=== PATIENT | female | born 1955 | race Caucasian/White ===

== ENCOUNTER → 2017-04-20 | Outpatient (CLI) | payer BC, OTHER ==
[~2017-04-20] MED LIST: LEVO112T2 PO; MULT-602; PRLSR20 PO; domperidone PO
--- NOTE | 2017-04-21 07:36 | MAMMOGRAPHY REPORT ---
BILATERAL DIGITAL SCREENING MAMMOGRAM TOMOSYNTHESIS WITH CAD: 04/20/2017 CLINICAL HISTORY: Routine screening. Patient has no complaints. TECHNIQUE: Breast tomosynthesis in addition to standard 2D mammography was performed. Current study was also evaluated with a Computer Aided Detection (CAD) system. COMPARISON: Comparison is made to exams dated: 04/14/2016 mammogram, 04/03/2015 mammogram, 4 mammogram, 02/28/2013 mammogram, 02/23/2012 mammogram, and 03/02/2011 ultrasound - [facility]. BREAST COMPOSITION: There are scattered areas of fibroglandular density in both breasts. FINDINGS: The parenchymal pattern is unchanged. No developing mass, architectural distortion or clus ter of suspicious microcalcifications is seen in either breast. IMPRESSION: ACR BI-RADS CATEGORY 2: BENIGN There is no mammographic evidence of malignancy. A 1 year screening mammogram is recommended. The pa tient will receive written notification of the results. Approximately 10% of breast cancers are not detected with mammography. A negative mammographic report should not delay biopsy if a clinically suggestive mass is present. Iona Amado M.D. ay/:04/21/2017 07:15:29 [employer]ors Custodian: Reuben Farmer, M, [facility] letter sent: Normal 1/2 BI-RADS Code: ACR BI-RADS Category 2: Benign
== END | disposition home or self-care (01) ==
LOC: C.MAMM 14:50
PROVIDERS: ATTEND Internal Medicine Hematology
DX: Z12.31 Encounter for screening mammogram for malignant neoplasm of breast (principal)

== ENCOUNTER 2021-10-10 12:38 | Inpatient (IN) ==
[2021-10-10] MEDS ORDERED: SODIUM CHLORIDE 0.9% 1000ML 1,000 ML IV ONE (12:56)
[2021-10-10] MEDS ORDERED: MoRPHine SULFATE 10 MG/ML CARP/VIAL IV STA (12:56)
[2021-10-10] MEDS ORDERED: ONDANSETRON INJ 2 MG/ML 2 ML VIAL IV STA ×2 (12:56→15:23)
--- NOTE | 2021-10-10 13:05 | Emergency Department Note ---
Impression & Plan Small bowel obstruction due to adhesions, Abdominal pain, Vomiting ED Provider Note NAME: PATRICK ADAIR AGE: 66 SEX: F : 1955 ARRIVES VIA: Walk-In INFORMANT: Patient ED PROVIDER(S): Arjun Galvin DO CHIEF COMPLAINT: abdominal pain HPI: Patient is a 66-year-old female who presents to the ER for right lower quadrant/periumbilical abdominal pain. Symptoms started this morning around 9 for 30. Associate with nausea, vomiting, and diarrhea. Denies any dysuria, urgency, or frequency. No headache or change in vision. No chest pain or shortness of breath. No other exacerbating or remitting factors. They did go out to eat last night. No one around her has been sick that they are aware of. She describes as a crampy pain 10 out of 10 throughout her whole belly but significantly worse in the lower infraumbilical/right lower quadrant region. S he admits to feeling very nauseated and lightheaded. ROS: See above HPI for pertinent positives & negatives. A total of 10 systems reviewed and were otherwise negative. PAST MEDICAL HISTORY:See Below PAST SURGICAL HISTORY:See Below FAMILY HISTORY:See Below SOCIAL HISTORY:See Below HOME MEDICATIONS:See Below ALLERGIES:See Below VITALS:See Below PHYSICAL EXAMINATION: GENERAL: Sitting up in bed, alert, pale appearing, consistently vomiting EYE EXAM: normal conjunctiva. PERRL and EOM's grossly intact. OROPHARYNX: Yellow vomit coming out of mouth NECK: supple, no nuchal rigidity, no adenopathy, non-tender LUNGS: Clear to auscultation. Normal chest wall mechanics HEART: no murmurs, S1 normal and S2 normal ABDOMEN: abdomen soft, tender palpation in infraumbilical/right lower quadrant normo-active bowel sounds, no masses, no rebound or guarding. BACK: Back is symmetrical on inspection and there is no deformity, no midline tenderness, no CVA tenderness. SKIN: no rashes and no bruising UPPER EXTREMITIES: upper extremities are grossly normal. LOWER EXTREMITIES: No pitting edema. NEURO EXAM: Normal sensorium, cranial nerves II-XII grossly intact, normal speech, no gross weakness of arms, no gross weakness of legs. MEDICAL DECISION MAKING: Patient is a 66-year-old female who presents ER for severe abdominal pain associate with nausea and vomiting. Previous abdominal surgeries include hysterectomy. IV was established blood work was obtained. Labs showed no significant leukocytosis or anemia. BMP with slightly low CO2 at 20. LFTs bilirubin was unremarkable. Troponin was negative. Lipase was negative. COVID was negative. CT abdomen pelvis shows small bowel obstruction concern for possible closed-loop. Based on these findings general surgery was consulted and discussed with Margie who evaluate the patient at bedside in combination with Dr. Palacios. I recommended admission to internal medicine and they will follow. NG tube was placed. KUB confirmed. Patient was given multiple doses of morphine and a dose of Dilaudid as well as IV fluids and 2 doses of Zofran. She did have mild improvement of her symptoms. Discussed with Sanjana from [facility] service for further evaluation and admission. Triage Nursing notes reviewed. Limited review of prior medical records performed Vital Signs: reviewed and remarkable for HTN, tachy Differential diagnosis: Differential diagnoses includes but is not limited to gastritis, peptic ulcer disease, GERD, gallbladder disease, pancreatitis, small bowel obstruction, acute coronary syndrome, pericarditis, ischemic bowel, irritable bowel disease, irritable bowel syndrome, appendicitis, diverticulitis, malignancy, hernia, urinary tract infection, torsion, perforation, trauma, infectious. ER treatment provided: See below Diagnostics interpreted by me: ECG: none Cardiac Monitoring: An order was placed for continuous cardiac monitoring. The monitor shows a rate of 55 with sinus rhythm. Laboratory studies: As stated above and show below. Imaging studies: CT abdomen pelvis as described above Consultation(s): Discussed with general surgery who evaluated the patient at bedside Discussed with hospitalist for admission and further evaluation Procedures: none Critical Care: None Past Med/Surg History Medical History Endometriosis Hip pain, right History of cystocele Hypothyroidism Melanoma Myofascial pain Sacroiliitis Surgical History H/O: hysterectomy History of colonoscopy with polypectomy Family History Father Colorectal cancer Mother Colorectal cancer Social History Smoking Status: Former smoker Tobacco Type: Cigarettes Hx Alcohol Use: Yes (2 drinks/week) Hx Substance Use: No Preferred Language: Micronesian Visual Impairment: No Limitations Hearing Ability: Normal Beliefs That Will Affect Care: None marital status: Current Living Situation: Spouse current occupational status: retired Feels Safe at Home: Yes Allergies Allergies Allergy/AdvReac Type Severity Reaction Status Date / Time No Known Allergies Allergy Verified 10/10/21 14:58 Home Meds Home Medications Medication Instructions Recorded Confirmed levothyroxine 125 mcg tablet 125 mcg PO DAILYBB 04/04/18 10/10/21 (Synthroid) Lactobacillus 40-Bifidobact 0 cap PO HS 10/10/21 10/10/21 3-S.thermophilus 100 billion cell capsule (Probiotic) ascorbic acid (vitamin C) 1,000 mg 0 mg PO HS 10/10/21 10/10/21 tablet (Vitamin C) calcium carbonate 500 mg calcium 0 mg PO HS 10/10/21 10/10/21 (1,250 mg) tablet cholecalciferol (vitamin D3) 25 0 mcg PO HS 10/10/21 10/10/21 mcg (1,000 unit) tablet (Vitamin D3) cyanocobalamin (vitamin B-12) 0 mcg PO HS 10/10/21 10/10/21 1,000 mcg tablet (Vitamin B-12) multivitamin 1 tab PO HS 10/10/21 10/10/21 zinc 50 mg tablet 0 mg PO HS 10/10/21 10/10/21 Results & Data (ED) Vital Signs Vital Signs - 24 hr 10/10/21 12:39 10/10/21 12:58 10/10/21 16:00 Temperature 36.9 C Temperature Source Temporal Artery Scan Pulse Rate 110 H Pulse Rate [Right Finger] 52 L 52 L Pulse Rhythm Regular Pulse Rhythm [Right Finger] Regular Pulse Strength Normal Pulse Strength [Right Finger] Normal Normal Respiratory Rate 26 H 18 18 Respiratory Effort / Characteristics Non-Labored Spontaneous Spontaneous Non-Labored Respiratory Depth Normal Normal Normal Respiratory Pattern Regular Tachypnea Regular Blood Pressure 190/172 H Blood Pressure [Right Arm] 106/56 L 112/55 L Blood Pressure Mean 178 Blood Pressure Mean [Right Arm] 72 74 Blood Pressure Position [Right Arm] Lying Lying Pulse Oximetry 100 99 99 Oxygen Delivery Method Room Air Room Air Room Air Sepsis Recent Fever Within 48 Hours No Sepsis New/Unexplained Change in Mental Status N/A Sepsis Action Taken by Nursing No Action Required Laboratory Data Result diagrams: 10/10/21 13:05 10/10/21 13:05 Lab Results 10/10/21 10/10/21 10/10/21 Range/Units 13:05 13:05 13:05 WBC 10.76 (4.8-10.8) K/uL RBC 4.59 (4.2-5.4) M/uL Hgb 14.5 (12.0-16.0) g/dL Hct 42.6 (37-47) % MCV 92.8 (80-100) fL MCH 31.6 (25-34) pg MCHC 34.0 (32-36) g/dL RDW Std Deviation 48.4 H (36.4-46.3) fL RDW Coeff of Ben 14.2 (11.5-14.5) % Plt Count 317 (130-400) K/uL MPV 10.4 (7.4-10.4) fL Immature Gran % (Auto) 0.3 % Neut % (Auto) 80.2 % Lymph % (Auto) 14.6 % Milam % (Auto) 3.9 % Eos % (Auto) 0.7 % Baso % (Auto) 0.3 % Neut # (Auto) 8.64 H (1.4-6.5) K/uL Lymph # (Auto) 1.57 (1.2-3.4) K/uL Milam # (Auto) 0.42 (0.11-0.59) K/uL Eos # (Auto) 0.07 (0-0.5) K/uL Baso # (Auto) 0.03 (0-0.2) K/uL Immature Gran # (Auto) 0.03 H (0.00-0.02) K/uL Sodium 137 (136-145) mmol/L Potassium 3.8 (3.5-5.1) mmol/L Chloride 102 (98-107) mmol/L Carbon Dioxide 20 L (21-32) mmol/L Anion Gap 15 H (3-11) BUN 20 (6-23) mg/dl Creatinine 0.79 (0.6-1.2) mg/dl Est Cr Clr Drug Dosing 51.1 ml/min Est GFR ( Amer) 91.0 ml/min Est GFR (Non-Af Amer) 78.6 ml/min BUN/Creatinine Ratio 25.3 H (10-20) Glucose 121 H (70-99(Fasting)) mg/dl Calcium 10.1 (8.5-10.1) mg/dl Total Bilirubin 1.1 H (0.2-1.0) mg/dl AST 21 (13-39) U/L ALT 20 (7-52) U/L Alkaline Phosphatase 101 (34-104) U/L Troponin I High Sens 2.7 (0-14) pg/ml Total Protein 7.3 (6.0-8.3) gm/dl Albumin 4.5 (3.4-5.0) gm/dl Globulin 2.8 (2.5-4.0) gm/dl Albumin/Globulin Ratio 1.6 (0.9-2) Lipase 32 (11-82) U/L SARS-CoV-2, RNA, NAAT (NEGATIVE) 10/10/21 Range/Units 16:47 WBC (4.8-10.8) K/uL RBC (4.2-5.4) M/uL Hgb (12.0-16.0) g/dL Hct (37-47) % MCV (80-100) fL MCH (25-34) pg MCHC (32-36) g/dL RDW Std Deviation (36.4-46.3) fL RDW Coeff of Ben (11.5-14.5) % Plt Count (130-400) K/uL MPV (7.4-10.4) fL Immature Gran % (Auto) % Neut % (Auto) % Lymph % (Auto) % Milam % (Auto) % Eos % (Auto) % Baso % (Auto) % Neut # (Auto) (1.4-6.5) K/uL Lymph # (Auto) (1.2-3.4) K/uL Milam # (Auto) (0.11-0.59) K/uL Eos # (Auto) (0-0.5) K/uL Baso # (Auto) (0-0.2) K/uL Immature Gran # (Auto) (0.00-0.02) K/uL Sodium (136-145) mmol/L Potassium (3.5-5.1) mmol/L Chloride (98-107) mmol/L Carbon Dioxide (21-32) mmol/L Anion Gap (3-11) BUN (6-23) mg/dl Creatinine (0.6-1.2) mg/dl Est Cr Clr Drug Dosing ml/min Est GFR ( Amer) ml/min Est GFR (Non-Af Amer) ml/min BUN/Creatinine Ratio (10-20) Glucose (70-99(Fasting)) mg/dl Calcium (8.5-10.1) mg/dl Total Bilirubin (0.2-1.0) mg/dl AST (13-39) U/L ALT (7-52) U/L Alkaline Phosphatase (34-104) U/L Troponin I High Sens (0-14) pg/ml Total Protein (6.0-8.3) gm/dl Albumin (3.4-5.0) gm/dl Globulin (2.5-4.0) gm/dl Albumin/Globulin Ratio (0.9-2) Lipase (11-82) U/L SARS-CoV-2, RNA, NAAT NEGATIVE (NEGATIVE) Administered Medications Sodium Chloride (Nss 1000ml) 1,000 mls @ 80 mls/hr IV .[id number] JOHAN Stop: 11/09/21 16:59 Last Admin: 10/10/21 16:50 Dose: 80 mls/hr Documented by: [id number] Discontinued Medications Hydromorphone HCl (Hydromorphone Inj 0.5 Mg/0.5 Ml Syr) 0.5 mg IV NOW STA Stop: 10/10/21 16:16 Last Admin: 10/10/21 16:49 Dose: 0.5 mg Documented by: [id number] Sodium Chloride (Nss 1000ml) 1,000 mls @ 999 mls/hr IV .[id number] ONE Stop: 10/10/21 13:56 Last Infusion: 10/10/21 14:20 Dose: 0 mls/hr Documented by: [id number] Admin: 10/10/21 13:15 Dose: 999 mls/hr Documented by: [id number] Acetaminophen (Ofirmev) 1,000 mg in 100 mls @ 400 mls/hr IV NOW STA Stop: 10/10/21 17:24 Last Admin: 10/10/21 17:44 Dose: 400 mls/hr Documented by: [id number] Ioversol (Optiray 320 100ml) 92 ml IV ONCE ONE Stop: 10/10/21 14:58 Last Admin: 10/10/21 14:59 Dose: 92 ml Documented by: [id number] Morphine Sulfate (Morphine Sulfate 10 Mg/Ml Carp/Vial) 6 mg IV NOW STA Stop: 10/10/21 12:57 Last Admin: 10/10/21 13:12 Dose: 6 mg Documented by: [id number] Morphine Sulfate (Morphine Sulfate 4 Mg/Ml 1 Ml Carp\Vial) 4 mg IV NOW STA Stop: 10/10/21 15:29 Last Admin: 10/10/21 15:42 Dose: 4 mg Documented by: [id number] Ondansetron HCl (Ondansetron Inj 2 Mg/Ml 2 Ml Vial) 4 mg IV NOW STA Stop: 10/10/21 12:57 Last Admin: 10/10/21 13:12 Dose: 4 mg Documented by: [id number] Ondansetron HCl (Ondansetron Inj 2 Mg/Ml 2 Ml Vial) 4 mg IV NOW STA Stop: 10/10/21 15:24 Last Admin: 10/10/21 15:42 Dose: 4 mg Documented by: [id number] Imaging Data Radiologist's Impression: Abdomen/Pelvis CT 10/10/21 12:56 CT abd pelvis IV con only CLINICAL HISTORY: n/v/d rlq abd pain TECHNIQUE: Helical axial images of the abdomen and pelvis were obtained and displayed. Automated dose lowering techniques and/or adjustment according to patient size were utilized for this exam. This exam was performed with intravenous contrast. CT DOSE: 260.71 mGy.cm COMPARISON: Comparison is made to CT abdomen pelvis 07/10/2013 FINDINGS: Lower chest: A focus of groundglass and consolidative opacity is seen in the left lower lobe. This may represent infectious/inflammatory process. Liver: Unremarkable. No focal lesions are seen. Gallbladder and biliary tree: No calcified gallstones. Normal caliber wall. No intra- or extrahepatic biliary ductal dilation. Pancreas: Unremarkable, no focal lesions. Spleen: Unremarkable. Adrenals: Unremarkable. Kidneys and ureters: Unremarkable. Bladder: Unremarkable. Reproductive organs: Unremarkable. Bowel: The appendix is normal. There are multiple dilated loops of bowel just prior to the terminal ileum measuring up to 27 mm. Bowel wall thickening and surrounding fat stranding and free fluid is noted. Transition points are visualized in the right lower quadrant. Lymph nodes Retroperitoneal: Unremarkable. Mesenteric: Unremarkable. Pelvic: Unremarkable. Peritoneum: Normal. Vessels: Unremarkable. Abdominal wall: Unremarkable. Bones: Degenerative changes in the visualized spine. IMPRESSION: Findings are compatible with small bowel obstruction in the right lower quadrant. There is some wall thickening. Although some stool remains in the cecum, 2 transition points are seen and a closed loop obstruction cannot be entirely excluded. ACT 112: Negative or not required by law. Electronically signed by: Alexx Fowler M.D. 10/10/2021 3:39 PM KUB X-Ray 10/10/21 16:15 KUB CLINICAL HISTORY: ng tube placement COMPARISON STUDY: CT of the abdomen and pelvis performed earlier today. FINDINGS: The tip of the nasogastric tube is within the distal body of the stom ach. IMPRESSION: Tip of nasogastric tube within the distal body of the stomach. ACT 112: Negative or not required by law. Electronically signed by: Antwan Boss M.D. 10/10/2021 5:13 PM Discharge Plan Visit Data Chief Complaint: Abdominal Pain Stated Complaint: abd pain, nausea, vomit ED Provider: Arjun Galvin Discharge Problem: Small bowel obstruction due to adhesions, Abdominal pain, Vomiting Forms Stand Alone Forms: [facility] [place] [employer] Prescriptions Prescriptions: No Action levothyroxine [Synthroid] 125 mcg tablet 125 mcg PO DAILYBB RF: 0 multivitamin Tablet 1 tab PO HS RF: 0 ascorbic acid (vitamin C) [Vitamin C] 1,000 mg Tablet 0 mg PO HS RF: 0 cyanocobalamin (vitamin B-12) [Vitamin B-12] 1,000 mcg Tablet 0 mcg PO HS RF: 0 calcium carbonate [Calcium 500] 500 mg calcium (1,250 mg) Tablet 0 mg PO HS RF: 0 zinc 50 mg Tablet 0 mg PO HS RF: 0 cholecalciferol (vitamin D3) [Vitamin D3] 25 mcg (1,000 unit) Tablet 0 mcg PO HS RF: 0 Probiotic 100 billion cell Capsule 0 cap PO HS RF: 0 Referrals Referrals: Roverto El MD [Surgeon] -
[2021-10-10 13:18] LABS: Basophils # (auto) 0.03 K/uL (0-0.2); Basophils % (auto) 0.3 %; Eosinophils # (auto) 0.07 K/uL (0-0.5); Eosinophils % (auto) 0.7 %; Hematocrit (blood only) 42.6 % (37-47); Hemoglobin 14.5 g/dL (12.0-16.0); Immature Granulocytes # (auto) 0.03 K/uL (0.00-0.02); Immature Granulocytes % (auto) 0.3 %; Lymphocytes # (auto) 1.57 K/uL (1.2-3.4); Lymphocytes % (auto) 14.6 %; Mean Corpuscular Hemoglobin 31.6 pg (25-34); Mean Corpuscular Volume 92.8 fL (80-100); Mean Platelet Volume 10.4 fL (7.4-10.4); Monocytes # (auto) 0.42 K/uL (0.11-0.59); Monocytes % (auto) 3.9 %; Neutrophils # (auto) 8.64 K/uL (1.4-6.5); Neutrophils % (auto) 80.2 %; Platelet Count 317 K/uL (130-400); RDW Coefficient of Variation 14.2 % (11.5-14.5); RDW Standard Deviation 48.4 fL (36.4-46.3); Red Blood Count 4.59 M/uL (4.2-5.4); White Blood Count 10.76 K/uL (4.8-10.8)
[2021-10-10 14:01] LABS: Albumin Globulin Ratio 1.6 (0.9-2); Albumin Level 4.5 gm/dl (3.4-5.0); BUN Creatinine Ratio 25.3 (10-20); Bilirubin,Total 1.1 mg/dl (0.2-1.0); Calcium 10.1 mg/dl (8.5-10.1); Creatinine Clr Calc Pharmacy 51.1 ml/min; Est GFR (Non-African American) 78.6 ml/min; Globulin 2.8 gm/dl (2.5-4.0); Potassium 3.8 mmol/L (3.5-5.1); Total Protein 7.3 gm/dl (6.0-8.3)
[2021-10-10] MEDS ORDERED: OPTIRAY 320 100ml IV ONE (14:57)
[2021-10-10] MEDS ORDERED: MoRPHine SULFATE 4 MG/ML 1 ML CARP\\VIAL IV STA (15:28)
--- NOTE | 2021-10-10 15:41 | CT Scan Report ---
CT abd pelvis IV con only CLINICAL HISTORY: n/v/d rlq abd pain TECHNIQUE: Helical axial images of the abdomen and pelvis were obtained and displayed. Automated dose lowering techniques and/or adjustment according to patient size were utilized for this exam. This e xam was performed with intravenous contrast. CT DOSE: 260.71 mGy.cm COMPARISON: Comparison is made to CT abdomen pelvis 07/10/2013 FINDINGS: Lower chest: A focus of groundglass and consolidative opacity is seen in the left lower lobe. This m ay represent infectious/inflammatory process. Liver: Unremarkable. No focal lesions are seen. Gallbladder and biliary tree: No calcified gallstones. Normal caliber wall. No intra- or extrahepatic biliary ductal dilation. Pancreas: Unremarkable, no focal lesions. Spleen: Unremarkable. Adrenals: Unremarkable. Kidneys and ureters: Unremarkable. Bladder: Unremarkable. Reproductive organs: Unremarkable. Bowel: The appendix is normal. There are multiple dilated loops of bowel just prior to the terminal i leum measuring up to 27 mm. Bowel wall thickening and surrounding fat stranding and free fluid is not ed. Transition points are visualized in the right lower quadrant. Lymph nodes Retroperitoneal: Unremarkable. Mesenteric: Unremarkable. Pelvic: Unremarkable. Peritoneum: Normal. Vessels: Unremarkable. Abdominal wall: Unremarkable. Bones: Degenerative changes in the visualized spine. IMPRESSION: Findings are compatible with small bowel obstruction in the right lower quadrant. There is some wall thickening. Although some stool remains in the cecum, 2 transition points are seen and a closed loop obstruction cannot be entirely excluded. ACT 112: Negative or not required by law. Electronically signed by: Alexx Fowler M.D. 10/10/2021 3:39 PM
--- NOTE | 2021-10-10 16:00 | Electrocardiogram Report ---
Test Reason : Blood Pressure : / mmHG Vent. Rate : 050 BPM Atrial Rate : 050 BPM P-R Int : 198 ms QRS Dur : 112 ms QT Int : 540 ms P-R-T Axes : -28 -27 -10 degrees QTc Int : 492 ms Sinus bradycardia Prolonged QT Abnormal ECG When compared with ECG of 27-APR-2013 21:32, ST no longer elevated in Inferior leads Non-specific change in ST segment in Lateral leads T wave inversion now evident in Inferior leads QT has lengthened Confirmed by Baldo Leo ([id number]) on 10/10/2021 3:59:41 PM Referred By: Confirmed By:Baldo Leo
[2021-10-10] MEDS ORDERED: HYDROmorphone INJ 0.5 MG/0.5 ML SYR IV STA (16:15)
--- NOTE | 2021-10-10 16:17 | History & Physical Report ---
Date of Service October 10, 2021 Assessment & Plan (1) Small bowel obstruction due to adhesions: (2) Hypothyroidism: Plan: This is a 66-year-old female who has significant past medical history of hypothyroidism, gastroparesis and arthritis who presents to ED secondary to right lower quadrant and periumbilical abdominal pain x1 day. Abdominal pain with N/V/D SBO admit to med/surg consult general surgery - Dr. Janny Palacios saw patient conservative measures for now NPO NGT with LIS IVF NS 80cc/hr IV apap scheduled, prn IV morphine Prolonged QTC on EKG EKG change cycle trops for thoroughness obtain echo she had nuclear stress test 07/2021 that was negative - at that time she was having increased fatigue and sob Hypothyroidism obtain tsh in a.m. transition to IV for now DVT ppx: SQ lovenox for now PCP: Dr. Barbi El FULL CODE Dispo: Med/surg, likely to remain hospitalized 1-2 days Pt was seen and examined in collaboration with Dr. Jennings, please see addendum History of Present Illness Chief Complaint: abdominal pain x 1 day. Primary Care Provider: Barbi El MD This is a 66-year-old female who has significant past medical history of hypothyroidism, gastroparesis and arthritis who presents to ED secondary to right lower quadrant and periumbilical abdominal pain x1 day. Symptoms started around 930 this morning with associated nausea, vomiting and diarrhea. She woke up this morning in her normal state of health. She did not eat breakfast. She got her work out in. Approx 20-30 min after workout she developed crampy lower abdominal pain that felt like, "gas." She then proceeded to vomiting 3-4 x of green emesis, non bloody. She also had about 2-3 episodes of loose watery stool. No known sick contacts. Last meal was dinner last night. She has never had this before. Pain is constant. Pain is located in abdomen. Initially was RLQ now more upper abd. Described as sharp. Her last Bm was at 12pm today in ED and diarrhea. She denies f/s, chest pain, sob, cough, uri sx, lightheaded, dizziness, dysuria, increased urg/freq with urination, hematuria, melena or hematochezia. She has hx of vaginal hysterectomy. No other prior abdominal surgeries. She is very active with exercise and walking. She follows GI for gastroparesis but does not take anything for this. She denies tobacco use and drinks wine occasionally. She had one glass of wine last night. Only drinks on weekends. In ED pt was hemodynamically stable. CT a/p revealed Findings are compatible with small bowel obstruction in the right lower quadrant. There is some wall thickening. Although some stool remains in the cecum, 2 transition points are seen and a closed loop obstruction cannot be entirely excluded. She received IV pain medications and antiemetics in ED. SHe continues to have significant abdominal pain. Allergies Allergy/AdvReac Type Severity Reaction Status Date / Time No Known Allergies Allergy Verified 10/10/21 14:58 Home Medications Medication Instructions Recorded Confirmed Type levothyroxine 125 mcg tablet 125 mcg PO DAILYBB 04/04/18 10/10/21 History (Synthroid) Lactobacillus 40-Bifidobact 0 cap PO HS 10/10/21 10/10/21 History 3-S.thermophilus 100 billion cell capsule (Probiotic) ascorbic acid (vitamin C) 1,000 mg 0 mg PO HS 10/10/21 10/10/21 History tablet (Vitamin C) calcium carbonate 500 mg calcium 0 mg PO HS 10/10/21 10/10/21 History (1,250 mg) tablet cholecalciferol (vitamin D3) 25 0 mcg PO HS 10/10/21 10/10/21 History mcg (1,000 unit) tablet (Vitamin D3) cyanocobalamin (vitamin B-12) 0 mcg PO HS 10/10/21 10/10/21 History 1,000 mcg tablet (Vitamin B-12) multivitamin 1 tab PO HS 10/10/21 10/10/21 History zinc 50 mg tablet 0 mg PO HS 10/10/21 10/10/21 History Past Med/Surg History Medical History Endometriosis Hip pain, right History of cystocele Hypothyroidism Melanoma Myofascial pain Sacroiliitis Surgical History H/O: hysterectomy History of colonoscopy with polypectomy Family History Father Colorectal cancer Mother Colorectal cancer Social History Smoking Status: Former smoker Tobacco Type: Cigarettes Hx Alcohol Use: Yes (2 drinks/week) Hx Substance Use: No Preferred Language: Colombian Visual Impairment: No Limitations Hearing Ability: Normal Beliefs That Will Affect Care: None marital status: Current Living Situation: Spouse current occupational status: retired Feels Safe at Home: Yes Review of Systems Review of Systems: All systems reviewed & are unremarkable except as noted in HPI & below Physical Exam Physical Exam: Constitutional: WD/WN, vitals as above, NAD, sitting up in bed, pleasant, conversing easily Head: Normocephalic, Atraumatic Eyes: PERRL, conjunctivae normal, anicteric sclerae ENMT: external ear and nose normal, oropharynx normal Neck: trachea midline, no thyromegaly normal visual inspection Respiratory: normal respiratory effort, lungs clear to auscultation, no wheeze, rales, rhonchi. Normal insp/exp effort, no accessory muscle use Cardiovascular: RRR, no murmur, no edema Vessels: no JVD or carotid bruit Chest: normal inspection of chest Abdomen: +BS, soft but tender throughout Musculoskeletal: no cyanosis or clubbing, extremities motor strength 5/5 Skin: no rashes, warm and dry normal turgor Neurologic: PERRL, EOMI, accommodation nl, no face palsy, no dysarthria CN's II-XI intact bilaterally and moves all extremities Psychiatric: A+Ox3, euthymic affect : deferred Results & Data Results & Data ([facility]) Vital Signs (Past 12 Hours) Vital Signs Temp Pulse Pulse Resp BP BP Pulse Ox 10/10/21 16:00 52 L 18 112/55 L 99 10/10/21 12:58 52 L 18 106/56 L 99 10/10/21 12:39 36.9 C 110 H 26 H 190/172 H 100 Diagnostic Findings Abdomen/Pelvis CT 10/10/21 12:56 CT abd pelvis IV con only CLINICAL HISTORY: n/v/d rlq abd pain TECHNIQUE: Helical axial images of the abdomen and pelvis were obtained and displayed. Automated dose lowering techniques and/or adjustment according to patient size were utilized for this exam. This exam was performed with intravenous contrast. CT DOSE: 260.71 mGy.cm COMPARISON: Comparison is made to CT abdomen pelvis 07/10/2013 FINDINGS: Lower chest: A focus of groundglass and consolidative opacity is seen in the left lower lobe. This may represent infectious/inflammatory process. Liver: Unremarkable. No focal lesions are seen. Gallbladder and biliary tree: No calcified gallstones. Normal caliber wall. No intra- or extrahepatic biliary ductal dilation. Pancreas: Unremarkable, no focal lesions. Spleen: Unremarkable. Adrenals: Unremarkable. Kidneys and ureters: Unremarkable. Bladder: Unremarkable. Reproductive organs: Unremarkable. Bowel: The appendix is normal. There are multiple dilated loops of bowel just prior to the terminal ileum measuring up to 27 mm. Bowel wall thickening and surrounding fat stranding and free fluid is noted. Transition points are visualized in the right lower quadrant. Lymph nodes Retroperitoneal: Unremarkable. Mesenteric: Unremarkable. Pelvic: Unremarkable. Peritoneum: Normal. Vessels: Unremarkable. Abdominal wall: Unremarkable. Bones: Degenerative changes in the visualized spine. IMPRESSION: Findings are compatible with small bowel obstruction in the right lower quadrant. There is some wall thickening. Although some stool remains in the cecum, 2 transition points are seen and a closed loop obstruction cannot be entirely excluded. ACT 112: Negative or not required by law. Electronically signed by: Alexx Fowler M.D. 10/10/2021 3:39 PM Medications Administered Medication List Discontinued Medications Sodium Chloride (Nss 1000ml) 1,000 mls @ 999 mls/hr IV .Q1H1M ONE Stop: 10/10/21 13:56 Last Infusion: 10/10/21 14:20 Dose: 0 mls/hr Documented by: [id number] Admin: 10/10/21 13:15 Dose: 999 mls/hr Documented by: [id number] Ioversol (Optiray 320 100ml) 92 ml IV ONCE ONE Stop: 10/10/21 14:58 Last Admin: 10/10/21 14:59 Dose: 92 ml Documented by: [id number] Morphine Sulfate (Morphine Sulfate 10 Mg/Ml Carp/Vial) 6 mg IV NOW STA Stop: 10/10/21 12:57 Last Admin: 10/10/21 13:12 Dose: 6 mg Documented by: [id number] Morphine Sulfate (Morphine Sulfate 4 Mg/Ml 1 Ml Carp\\Vial) 4 mg IV NOW STA Stop: 10/10/21 15:29 Last Admin: 10/10/21 15:42 Dose: 4 mg Documented by: [id number] Ondansetron HCl (Ondansetron Inj 2 Mg/Ml 2 Ml Vial) 4 mg IV NOW STA Stop: 10/10/21 12:57 Last Admin: 10/10/21 13:12 Dose: 4 mg Documented by: [id number] Ondansetron HCl (Ondansetron Inj 2 Mg/Ml 2 Ml Vial) 4 mg IV NOW STA Stop: 10/10/21 15:24 Last Admin: 10/10/21 15:42 Dose: 4 mg Documented by: [id number] ECG Rate (beats per minute): 50 Rhythm: sinus bradycardia Findings: + prolonged QT (492ms) Additional Comments: inferior t wave inversion COVID-19 Results Results COVID-19 Adm Lab Results: RBC 4.59 M/uL (4.2-5.4) 10/10/21 WBC 10.76 K/uL (4.8-10.8) 10/10/21 Hgb 14.5 g/dL (12.0-16.0) 10/10/21 Hct 42.6 % (37-47) 10/10/21 Plt Count 317 K/uL (130-400) 10/10/21 Neutrophils (%) (Auto) 80.2 % 10/10/21 Lymphocytes (%) (Auto) 14.6 % 10/10/21 Monocytes # (Auto) 0.42 K/uL (0.11-0.59) 10/10/21 Eosinophils # (Auto) 0.07 K/uL (0-0.5) 10/10/21 Immature Granulocyte % (Auto) 0.3 % 10/10/21 Neutrophils # (Auto) 8.64 K/uL (1.4-6.5) H 10/10/21 Lymphocytes # (Auto) 1.57 K/uL (1.2-3.4) 10/10/21 Monocytes # (Auto) 0.42 K/uL (0.11-0.59) 10/10/21 Eosinophils # (Auto) 0.07 K/uL (0-0.5) 10/10/21 Basophils # (Auto) 0.03 K/uL (0-0.2) 10/10/21 Immature Granulocyte # (Auto) 0.03 K/uL (0.00-0.02) H 10/10/21 Na 137 mmol/L (136-145) 10/10/21 K 3.8 mmol/L (3.5-5.1) 10/10/21 Cl 102 mmol/L (98-107) 10/10/21 CO2 20 mmol/L (21-32) L 10/10/21 Anion Gap 15 (3-11) H 10/10/21 BUN 20 mg/dl (6-23) 10/10/21 Creatinine 0.79 mg/dl (0.6-1.2) 10/10/21 BUN/Creatinine Ratio 25.3 (10-20) H 10/10/21 Glucose Level 121 mg/dl (70-99(Fasting)) H 10/10/21 Ca 10.1 mg/dl (8.5-10.1) 10/10/21 Total Bilirubin 1.1 mg/dl (0.2-1.0) H 10/10/21 AST/SGOT 21 U/L (13-39) 10/10/21 ALT/SGPT 20 U/L (7-52) 10/10/21 Alkaline Phosphatase 101 U/L (34-104) 10/10/21 Total Protein 7.3 gm/dl (6.0-8.3) 10/10/21 Albumin 4.5 gm/dl (3.4-5.0) 10/10/21 Globulin 2.8 gm/dl (2.5-4.0) 10/10/21 Albumin/Globulin Ratio 1.6 (0.9-2) 10/10/21 Code Status & VTE Plan Code Status FULL CODE VTE Prophylaxis Plan VTE Prophylaxis will be ordered: Yes Supervising Physician Co-Signing Physician Notes Patient is a 66-year-old female with history of hypothyroidism, gastroparesis, vaginal hysterectomy and no other significant past medical history presents with history of nausea, vomiting, diarrhea, abdominal pain since 1 day duration. She denies any chest pain, shortness of breath, fever, chills, blood in stools. Abdominal pain is sharp, nonradiating, constant, no aggravating relieving factors. Patient denies having any history of small bowel obstruction in the past. Please review HPI for complete details of presentation. On exam patient is thin, frail, no apparent distress, normocephalic atraumatic, EOMI, normal breath sounds, clear to auscultation, S1-S2, bradycardia, no murmur, no pedal edema, abdomen soft, tender predominantly right lower quadrant, periumbilical region, decreased bowel sounds, alert, awake, oriented, grossly no focal deficits. Blood work reviewed. Bicarbonate level 20, anion gap 15, Hemoglobin 14.5, creatinine 0.79, bilirubin 1.1, AST 21, ALT 20, alkaline phosphatase 101, CT abdomen showed findings suggestive of small bowel obstruction in the right lower quadrant, wall thickening, 2 transition points seen and a closed-loop obstruction cannot be entirely excluded. EKG showed sinus bradycardia, prolonged QT, nonspecific change in ST segment and lateral leads, T wave inversion in inferior leads noted. Patient is admitted for management of small bowel obstruction. Bowel rest, NG tube decompression, IV fluids, pain control, surgery consulted. Repeat KUB in AM. Given new EKG changes, will trend cardiac enzymes, check resting echo and repeat EKG in the morning. QTC is prolonged. Avoid QTC prolonging meds. I personally reviewed the record. Patient is inter viewed and examined at bedside. Patient's care is coordinated with Sanjana Otto PA-C. Please refer to the documentation above for details of patient's presentation and for discussion of other issues.
--- NOTE | 2021-10-10 16:45 | History & Physical Report ---
Date of Service October 10, 2021 Assessment & Plan (1) Small bowel obstruction due to adhesions: Plan: 66 yr old woman with prior hysterectomy and findings consistent with small bowel obstruction, potentially closed loop but this is not clear on her CT scan. Currently, no signs of ischemia or peritoneal signs on exam. I would be comfortable with trial of conservative management with ng decompression, bowel rest, IVF hydration. If fails to improve, may potentially need exploration. Will follow. History of Present Illness Chief Complaint: abdominal pain Primary Care Provider: Roverto El MD 66 yr old woman seen in consultation at the request of Arjun Galvin MD with history of a vaginal hysterectomy presents today with generalized, constant, severe abdominal pain which started suddenly around 9:30 am. Pain was initially more in the right lower quadrant, now more focal in the upper abdomen, 10/10 in severity, not better with 2 dose of morphine, no worsening with movement. No radiation to her back. No similar episodes in the past. Associated with nausea and vomiting, initially bilious but now dry heaves. Last bowel movement was diarrhea while here in the ER. [place] chilled and weak but no fevers. Allergies Allergy/AdvReac Type Severity Reaction Status Date / Time No Known Allergies Allergy Verified 10/10/21 14:58 Home Medications Medication Instructions Recorded Confirmed Type levothyroxine 125 mcg tablet 125 mcg PO DAILYBB 04/04/18 10/10/21 History (Synthroid) Lactobacillus 40-Bifidobact 0 cap PO HS 10/10/21 10/10/21 History 3-S.thermophilus 100 billion cell capsule (Probiotic) ascorbic acid (vitamin C) 1,000 mg 0 mg PO HS 10/10/21 10/10/21 History tablet (Vitamin C) calcium carbonate 500 mg calcium 0 mg PO HS 10/10/21 10/10/21 History (1,250 mg) tablet cholecalciferol (vitamin D3) 25 0 mcg PO HS 10/10/21 10/10/21 History mcg (1,000 unit) tablet (Vitamin D3) cyanocobalamin (vitamin B-12) 0 mcg PO HS 10/10/21 10/10/21 History 1,000 mcg tablet (Vitamin B-12) multivitamin 1 tab PO HS 10/10/21 10/10/21 History zinc 50 mg tablet 0 mg PO HS 10/10/21 10/10/21 History Past Med/Surg History Medical History Endometriosis Hip pain, right History of cystocele Hypothyroidism Melanoma Myofascial pain Sacroiliitis Surgical History H/O: hysterectomy History of colonoscopy with polypectomy Family History Father Colorectal cancer Mother Colorectal cancer Social History Smoking Status: Former smoker Tobacco Type: Cigarettes Hx Alcohol Use: Yes (2 drinks/week) Hx Substance Use: No Preferred Language: Macedonian Visual Impairment: No Limitations Hearing Ability: Normal Beliefs That Will Affect Care: None marital status: Current Living Situation: Spouse current occupational status: retired Feels Safe at Home: Yes Review of Systems Review of Systems: All systems reviewed & are unremarkable except as noted in HPI & below Physical Exam Constitutional: WD/WN, vitals as above Eyes: PERRL, conjunctivae normal, anicteric sclerae Neck: normal visual inspection and trachea midline Respiratory: normal respiratory effort, lungs clear to auscultation Cardiovascular: RRR, no murmur, no edema Gastrointestinal (Abdomen): Inspection/Auscultation: abdomen normal to inspection and + hypoactive bowel sounds; abdomen not distended and + abnormal bowel sounds Percussion/Palpation: + abdomen tender (mild, right lower quadrant) and abdomen soft; no guarding and no hepatosplenomegaly Musculoskeletal: no cyanosis or clubbing, extremities motor strength 5/5 Neurologic: moves all extremities and awake Psychiatric: A+Ox3, euthymic affect Results & Data Results & Data ([facility]) Vital Signs (Past 12 Hours) Vital Signs Temp Pulse Pulse Resp BP BP Pulse Ox 10/10/21 16:00 52 L 18 112/55 L 99 10/10/21 12:58 52 L 18 106/56 L 99 10/10/21 12:39 36.9 C 110 H 26 H 190/172 H 100 Laboratory Results Abnormal lab results 10/10/21 10/10/21 Range/Units 13:05 13:05 RDW Std Deviation 48.4 H (36.4-46.3) fL Neut # (Auto) 8.64 H (1.4-6.5) K/uL Immature Gran # (Auto) 0.03 H (0.00-0.02) K/uL Carbon Dioxide 20 L (21-32) mmol/L Anion Gap 15 H (3-11) BUN/Creatinine Ratio 25.3 H (10-20) Glucose 121 H (70-99(Fasting)) mg/dl Total Bilirubin 1.1 H (0.2-1.0) mg/dl Diagnostic Findings CT abd pelvis IV con only CLINICAL HISTORY: n/v/d rlq abd pain TECHNIQUE: Helical axial images of the abdomen and pelvis were obtained and displayed. Automated dose lowering techniques and/or adjustment according to patient size were utilized for this exam. This exam was performed with intravenous contrast. CT DOSE: 260.71 mGy.cm COMPARISON: Comparison is made to CT abdomen pelvis 07/10/2013 FINDINGS: Lower chest: A focus of groundglass and consolidative opacity is seen in the left lower lobe. This may represent infectious/inflammatory process. Liver: Unremarkable. No focal lesions are seen. Gallbladder and biliary tree: No calcified gallstones. Normal caliber wall. No intra- or extrahepatic biliary ductal dilation. Pancreas: Unremarkable, no focal lesions. Spleen: Unremarkable. Adrenals: Unremarkable. Kidneys and ureters: Unremarkable. Bladder: Unremarkable. Reproductive organs: Unremarkable. Bowel: The appendix is normal. There are multiple dilated loops of bowel just prior to the terminal ileum measuring up to 27 mm. Bowel wall thickening and surrounding fat stranding and free fluid is noted. Transition points are visualized in the right lower quadrant. Lymph nodes Retroperitoneal: Unremarkable. Mesenteric: Unremarkable. Pelvic: Unremarkable. Peritoneum: Normal. Vessels: Unremarkable. Abdominal wall: Unremarkable. Bones: Degenerative changes in the visualized spine. IMPRESSION: Findings are compatible with small bowel obstruction in the right lower quadrant. There is some wall thickening. Although some stool remains in the cecum, 2 transition points are seen and a closed loop obstruction cannot be entirely excluded. ACT 112: Negative or not required by law. I personally reviewed her CT scan films and agree wtih findings. Code Status & VTE Plan VTE Prophylaxis Plan VTE Prophylaxis will be ordered: Yes
[2021-10-10] MEDS: SODIUM CHLORIDE 0.9% 1000ML 1,000 ML IV SCH (16:50)
[2021-10-10] MEDS ORDERED: ACETAMINOPHEN 1,000 MG/100 ML VIAL IV STA (17:10)
--- NOTE | 2021-10-10 17:15 | XRay Report ---
KUB CLINICAL HISTORY: ng tube placement COMPARISON STUDY: CT of the abdomen and pelvis performed earlier today. FINDINGS: The tip of the nasogastric tube is within the distal body of the stomach. IMPRESSION: Tip of nasogastric tube within the distal body of the stomach. ACT 112: Negative or not required by law. Electronically signed by: Antwan Boss M.D. 10/10/2021 5:13 PM
[2021-10-10] MEDS ORDERED: MoRPHine SULFATE 4 MG/ML 1 ML CARP\\VIAL IV PRN (19:55)
[2021-10-10] MEDS: ACETAMINOPHEN 1,000 MG/100 ML VIAL IV SCH (20:15)
[2021-10-10] MEDS: PROMETHAZINE HCL 6.25 MG in SODIUM CHLORIDE 0.9% 50 ML IV PRN (20:55)
[2021-10-10] MEDS: HYDROmorphone INJ 0.5 MG/0.5 ML SYR IV PRN (21:35)
[2021-10-10] MEDS: HEPARIN SOD 5,000 UNIT/0.5 ML VIAL SC SCH (22:40)
[2021-10-11] MEDS: HYDROmorphone INJ 0.5 MG/0.5 ML SYR IV PRN ×4 (00:44→13:28)
[2021-10-11] MEDS ORDERED: HYDROmorphone INJ 0.5 MG/0.5 ML SYR IV STA (01:27)
[2021-10-11 01:30] LABS: Appearance Urine Clear (Clear); Bacteria Urine Automated 4+ (Negative); Bilirubin Urine Negative (Negative); Blood Urine 1+ (Negative); Color Urine Yellow; Epithelial Cell Urine Auto >30 /lpf (0-5); Glucose Urine UA Negative (Negative); Ketones Urine 2+ (Negative); Leukocyte Esterase Urine Negative (Negative); Nitrite Urine Positive (Negative); Protein Urine Negative (Negative); RBC Urine Automated 0-4 /hpf (0-4); Specific Gravity Urine > 1.045 (1.000-1.030); Urobilinogen Urine Negative (Negative)
[2021-10-11] MEDS: SODIUM CHLORIDE 0.9% 1000ML 1,000 ML IV SCH ×2 (04:12→17:57)
[2021-10-11] MEDS: ACETAMINOPHEN 1,000 MG/100 ML VIAL IV SCH ×3 (04:13→19:55)
[2021-10-11] MEDS: PROMETHAZINE HCL 6.25 MG in SODIUM CHLORIDE 0.9% 50 ML IV PRN (04:41)
[2021-10-11 07:11] LABS: Basophils # (auto) 0.01 K/uL (0-0.2); Basophils % (auto) 0.1 %; Hematocrit (blood only) 37.5 % (37-47); Hemoglobin 12.6 g/dL (12.0-16.0); Immature Granulocytes # (auto) 0.07 K/uL (0.00-0.02); Immature Granulocytes % (auto) 0.4 %; Lymphocytes # (auto) 1.36 K/uL (1.2-3.4); Lymphocytes % (auto) 6.9 %; Mean Corpuscular Hemoglobin 32.1 pg (25-34); Mean Corpuscular Hgb Conc 33.6 g/dL (32-36); Mean Corpuscular Volume 95.7 fL (80-100); Mean Platelet Volume 10.2 fL (7.4-10.4); Monocytes # (auto) 0.96 K/uL (0.11-0.59); Monocytes % (auto) 4.9 %; Neutrophils # (auto) 17.29 K/uL (1.4-6.5); Neutrophils % (auto) 87.7 %; Platelet Count 272 K/uL (130-400); RDW Coefficient of Variation 14.8 % (11.5-14.5); RDW Standard Deviation 51.9 fL (36.4-46.3); Red Blood Count 3.92 M/uL (4.2-5.4); White Blood Count 19.69 K/uL (4.8-10.8)
[2021-10-11 07:33] LABS: Albumin Globulin Ratio 1.6 (0.9-2); Albumin Level 3.8 gm/dl (3.4-5.0); BUN Creatinine Ratio 24.6 (10-20); Calcium 8.8 mg/dl (8.5-10.1); Creatinine Clr Calc Pharmacy 62.1 ml/min; Est GFR (Non-African American) 93.2 ml/min; Globulin 2.4 gm/dl (2.5-4.0); Magnesium 1.9 mg/dl (1.7-2.4); Total Protein 6.2 gm/dl (6.0-8.3)
--- NOTE | 2021-10-11 08:23 | Hospitalist Progress Note ---
Date of Service October 11, 2021 Assessment & Plan (1) Small bowel obstruction due to adhesions: (2) Hypothyroidism: Plan: This is a 66-year-old female who has significant past medical history of hypothyroidism, gastroparesis and arthritis who presents to ED secondary to right lower quadrant and periumbilical abdominal pain x1 day. Abdominal pain with N/V/D SBO admitted to med/surg General surgery consulted - Dr. Janny Palacios NG tube placed on admission, LIS NPO IVF NS 80cc/hr IV apap scheduled, prn IV dilaudid 10/11 - pt continues to have abdominal pain, despite NG tube placement and pain medications White blood cell count elevated today as well, lactate normal Started empiric antibiotic, ceftriaxone Plan for ex lap today by surgery Prolonged QTC on EKG EKG change High sensit. trops 2-5 Echo ordered on admission - pending she had nuclear stress test 07/2021 that was negative - at that time she was having increased fatigue and sob repeat EKG this AM -QTC shortened, nonspecific T wave abnormality replaced T wave inversion in inferior leads Pt denies any chest pain Hypothyroidism TSH 0.9 cont. IV levothyroxine for now DVT ppx: SCDs, (SQ heparin on hold now for surgery) PCP: Dr. Barbi El FULL CODE Dispo: Med/surg, likely to remain hospitalized 3-5 days Admission and Anticipated Discharge Date Admission Date: October 10, 2021 Subjective Patient seen in follow-up of small bowel obstruction Admitted yesterday, NG tube placed, however patient continues to have significant abdominal pain WBC elevated this morning as well, however lactate normal Surgery following, plan for ex lap today Review of Systems Review of Systems: All systems reviewed & are unremarkable except as noted in Subjective Physical Exam Physical Exam: Constitutional: WD/WN, in no respiratory distress, but somewhat uncomfortable due to pain, despite pain med Head: Normocephalic, Atraumatic Eyes: PERRL, conjunctivae normal, anicteric sclerae ENMT: NG tube placed Neck: normal visual inspection, supple Respiratory: normal respiratory effort, lungs clear to auscultation, no wheeze, rales, rhonchi. Normal insp/exp effort, no accessory muscle use Cardiovascular: RRR, no murmur, no edema Chest: normal inspection of chest Abdomen: +BS, soft but tender throughout Musculoskeletal:extremities motor strength 5/5 Skin: no rashes, warm and dry normal turgor Neurologic: PERRL, EOMI, no face palsy, no dysarthria, moves all extremities Psychiatric: A+Ox3, euthymic affect Results & Data Results & Data ([facility]) Vital Signs (Past 12 Hours) Vital Signs Temp Pulse Resp BP Pulse Ox 10/11/21 07:24 37.4 C 72 16 138/74 96 10/10/21 22:52 36.9 C 67 14 147/72 H 98 Laboratory Results 10/11/21 10/11/21 10/11/21 Range/Units 06:56 06:56 06:56 WBC 19.69 H (4.8-10.8) K/uL RBC 3.92 L (4.2-5.4) M/uL Hgb 12.6 (12.0-16.0) g/dL Hct 37.5 (37-47) % MCV 95.7 (80-100) fL MCH 32.1 (25-34) pg MCHC 33.6 (32-36) g/dL RDW Std Deviation 51.9 H (36.4-46.3) fL RDW Coeff of Ben 14.8 H (11.5-14.5) % Plt Count 272 (130-400) K/uL MPV 10.2 (7.4-10.4) fL Immature Gran % (Auto) 0.4 % Neut % (Auto) 87.7 % Lymph % (Auto) 6.9 % Butts % (Auto) 4.9 % Eos % (Auto) 0.0 % Baso % (Auto) 0.1 % Neut # (Auto) 17.29 H (1.4-6.5) K/uL Lymph # (Auto) 1.36 (1.2-3.4) K/uL Butts # (Auto) 0.96 H (0.11-0.59) K/uL Eos # (Auto) 0.00 (0-0.5) K/uL Baso # (Auto) 0.01 (0-0.2) K/uL Immature Gran # (Auto) 0.07 H (0.00-0.02) K/uL Sodium 137 (136-145) mmol/L Potassium 4.0 (3.5-5.1) mmol/L Chloride 107 (98-107) mmol/L Carbon Dioxide 23 (21-32) mmol/L Anion Gap 7 (3-11) BUN 16 (6-23) mg/dl Creatinine 0.65 (0.6-1.2) mg/dl Est Cr Clr Drug Dosing 62.1 ml/min Est GFR ( Amer) 108.0 ml/min Est GFR (Non-Af Amer) 93.2 ml/min BUN/Creatinine Ratio 24.6 H (10-20) Glucose 130 H (70-99(Fasting)) mg/dl Lactate (0.4-2.0) mmol/L Calcium 8.8 (8.5-10.1) mg/dl Magnesium 1.9 (1.7-2.4) mg/dl Total Bilirubin 1.0 (0.2-1.0) mg/dl AST 16 (13-39) U/L ALT 16 (7-52) U/L Alkaline Phosphatase 78 (34-104) U/L Troponin I High Sens (0-14) pg/ml Total Protein 6.2 (6.0-8.3) gm/dl Albumin 3.8 (3.4-5.0) gm/dl Globulin 2.4 L (2.5-4.0) gm/dl Albumin/Globulin Ratio 1.6 (0.9-2) Lipase (11-82) U/L TSH 0.973 (0.300-4.500) uIu/ml Urine Color Urine Appearance (Clear) Urine pH (4.5-7.5) Ur Specific [place] (1.000-1.030) Urine Protein (Negative) Urine Glucose (UA) (Negative) Urine Ketones (Negative) Urine Blood (Negative) Urine Nitrite (Negative) Urine Bilirubin (Negative) Urine Urobilinogen (Negative) Ur Leukocyte Esterase (Negative) Urine WBC (Auto) (0-5) /hpf Urine RBC (Auto) (0-4) /hpf U Hyaline Cast (Auto) (0-5) /lpf U Epithel Cells (Auto) (0-5) /lpf Urine Bacteria (Auto) (Negative) Hepatitis C Ab (EIA) Hep C Ab Signal/Cutoff SARS-CoV-2, RNA, NAAT (NEGATIVE) 10/11/21 10/11/21 10/11/21 Range/Units 06:56 00:52 00:40 WBC (4.8-10.8) K/uL RBC (4.2-5.4) M/uL Hgb (12.0-16.0) g/dL Hct (37-47) % MCV (80-100) fL MCH (25-34) pg MCHC (32-36) g/dL RDW Std Deviation (36.4-46.3) fL RDW Coeff of Ben (11.5-14.5) % Plt Count (130-400) K/uL MPV (7.4-10.4) fL Immature Gran % (Auto) % Neut % (Auto) % Lymph % (Auto) % Butts % (Auto) % Eos % (Auto) % Baso % (Auto) % Neut # (Auto) (1.4-6.5) K/uL Lymph # (Auto) (1.2-3.4) K/uL Butts # (Auto) (0.11-0.59) K/uL Eos # (Auto) (0-0.5) K/uL Baso # (Auto) (0-0.2) K/uL Immature Gran # (Auto) (0.00-0.02) K/uL Sodium (136-145) mmol/L Potassium (3.5-5.1) mmol/L Chloride (98-107) mmol/L Carbon Dioxide (21-32) mmol/L Anion Gap (3-11) BUN (6-23) mg/dl Creatinine (0.6-1.2) mg/dl Est Cr Clr Drug Dosing ml/min Est GFR ( Amer) ml/min Est GFR (Non-Af Amer) ml/min BUN/Creatinine Ratio (10-20) Glucose (70-99(Fasting)) mg/dl Lactate 0.7 (0.4-2.0) mmol/L Calcium (8.5-10.1) mg/dl Magnesium (1.7-2.4) mg/dl Total Bilirubin (0.2-1.0) mg/dl AST (13-39) U/L ALT (7-52) U/L Alkaline Phosphatase (34-104) U/L Troponin I High Sens 5.2 (0-14) pg/ml Total Protein (6.0-8.3) gm/dl Albumin (3.4-5.0) gm/dl Globulin (2.5-4.0) gm/dl Albumin/Globulin Ratio (0.9-2) Lipase (11-82) U/L TSH (0.300-4.500) uIu/ml Urine Color Yellow Urine Appearance Clear (Clear) Urine pH 5.0 (4.5-7.5) Ur Specific [place] > 1.045 H (1.000-1.030) Urine Protein Negative (Negative) Urine Glucose (UA) Negative (Negative) Urine Ketones 2+ H (Negative) Urine Blood 1+ H (Negative) Urine Nitrite Positive A (Negative) Urine Bilirubin Negative (Negative) Urine Urobilinogen Negative (Negative) Ur Leukocyte Esterase Negative (Negative) Urine WBC (Auto) 5-10 H (0-5) /hpf Urine RBC (Auto) 0-4 (0-4) /hpf U Hyaline Cast (Auto) 5-10 H (0-5) /lpf U Epithel Cells (Auto) >30 H (0-5) /lpf Urine Bacteria (Auto) 4+ H (Negative) Hepatitis C Ab (EIA) Hep C Ab Signal/Cutoff SARS-CoV-2, RNA, NAAT (NEGATIVE) 10/10/21 10/10/21 10/10/21 Range/Units 18:48 16:47 13:05 WBC (4.8-10.8) K/uL RBC (4.2-5.4) M/uL Hgb (12.0-16.0) g/dL Hct (37-47) % MCV (80-100) fL MCH (25-34) pg MCHC (32-36) g/dL RDW Std Deviation (36.4-46.3) fL RDW Coeff of Ben (11.5-14.5) % Plt Count (130-400) K/uL MPV (7.4-10.4) fL Immature Gran % (Auto) % Neut % (Auto) % Lymph % (Auto) % Butts % (Auto) % Eos % (Auto) % Baso % (Auto) % Neut # (Auto) (1.4-6.5) K/uL Lymph # (Auto) (1.2-3.4) K/uL Butts # (Auto) (0.11-0.59) K/uL Eos # (Auto) (0-0.5) K/uL Baso # (Auto) (0-0.2) K/uL Immature Gran # (Auto) (0.00-0.02) K/uL Sodium (136-145) mmol/L Potassium (3.5-5.1) mmol/L Chloride (98-107) mmol/L Carbon Dioxide (21-32) mmol/L Anion Gap (3-11) BUN (6-23) mg/dl Creatinine (0.6-1.2) mg/dl Est Cr Clr Drug Dosing ml/min Est GFR ( Amer) ml/min Est GFR (Non-Af Amer) ml/min BUN/Creatinine Ratio (10-20) Glucose (70-99(Fasting)) mg/dl Lactate (0.4-2.0) mmol/L Calcium (8.5-10.1) mg/dl Magnesium (1.7-2.4) mg/dl Total Bilirubin (0.2-1.0) mg/dl AST (13-39) U/L ALT (7-52) U/L Alkaline Phosphatase (34-104) U/L Troponin I High Sens < 2.3 (0-14) pg/ml Total Protein (6.0-8.3) gm/dl Albumin (3.4-5.0) gm/dl Globulin (2.5-4.0) gm/dl Albumin/Globulin Ratio (0.9-2) Lipase (11-82) U/L TSH (0.300-4.500) uIu/ml Urine Color Urine Appearance (Clear) Urine pH (4.5-7.5) Ur Specific [place] (1.000-1.030) Urine Protein (Negative) Urine Glucose (UA) (Negative) Urine Ketones (Negative) Urine Blood (Negative) Urine Nitrite (Negative) Urine Bilirubin (Negative) Urine Urobilinogen (Negative) Ur Leukocyte Esterase (Negative) Urine WBC (Auto) (0-5) /hpf Urine RBC (Auto) (0-4) /hpf U Hyaline Cast (Auto) (0-5) /lpf U Epithel Cells (Auto) (0-5) /lpf Urine Bacteria (Auto) (Negative) Hepatitis C Ab (EIA) Pending Hep C Ab Signal/Cutoff Pending SARS-CoV-2, RNA, NAAT NEGATIVE (NEGATIVE) 10/10/21 10/10/21 10/10/21 Range/Units 13:05 13:05 13:05 WBC 10.76 (4.8-10.8) K/uL RBC 4.59 (4.2-5.4) M/uL Hgb 14.5 (12.0-16.0) g/dL Hct 42.6 (37-47) % MCV 92.8 (80-100) fL MCH 31.6 (25-34) pg MCHC 34.0 (32-36) g/dL RDW Std Deviation 48.4 H (36.4-46.3) fL RDW Coeff of Ben 14.2 (11.5-14.5) % Plt Count 317 (130-400) K/uL MPV 10.4 (7.4-10.4) fL Immature Gran % (Auto) 0.3 % Neut % (Auto) 80.2 % Lymph % (Auto) 14.6 % Butts % (Auto) 3.9 % Eos % (Auto) 0.7 % Baso % (Auto) 0.3 % Neut # (Auto) 8.64 H (1.4-6.5) K/uL Lymph # (Auto) 1.57 (1.2-3.4) K/uL Butts # (Auto) 0.42 (0.11-0.59) K/uL Eos # (Auto) 0.07 (0-0.5) K/uL Baso # (Auto) 0.03 (0-0.2) K/uL Immature Gran # (Auto) 0.03 H (0.00-0.02) K/uL Sodium 137 (136-145) mmol/L Potassium 3.8 (3.5-5.1) mmol/L Chloride 102 (98-107) mmol/L Carbon Dioxide 20 L (21-32) mmol/L Anion Gap 15 H (3-11) BUN 20 (6-23) mg/dl Creatinine 0.79 (0.6-1.2) mg/dl Est Cr Clr Drug Dosing 51.1 ml/min Est GFR ( Amer) 91.0 ml/min Est GFR (Non-Af Amer) 78.6 ml/min BUN/Creatinine Ratio 25.3 H (10-20) Glucose 121 H (70-99(Fasting)) mg/dl Lactate (0.4-2.0) mmol/L Calcium 10.1 (8.5-10.1) mg/dl Magnesium (1.7-2.4) mg/dl Total Bilirubin 1.1 H (0.2-1.0) mg/dl AST 21 (13-39) U/L ALT 20 (7-52) U/L Alkaline Phosphatase 101 (34-104) U/L Troponin I High Sens 2.7 (0-14) pg/ml Total Protein 7.3 (6.0-8.3) gm/dl Albumin 4.5 (3.4-5.0) gm/dl Globulin 2.8 (2.5-4.0) gm/dl Albumin/Globulin Ratio 1.6 (0.9-2) Lipase 32 (11-82) U/L TSH (0.300-4.500) uIu/ml Urine Color Urine Appearance (Clear) Urine pH (4.5-7.5) Ur Specific [place] (1.000-1.030) Urine Protein (Negative) Urine Glucose (UA) (Negative) Urine Ketones (Negative) Urine Blood (Negative) Urine Nitrite (Negative) Urine Bilirubin (Negative) Urine Urobilinogen (Negative) Ur Leukocyte Esterase (Negative) Urine WBC (Auto) (0-5) /hpf Urine RBC (Auto) (0-4) /hpf U Hyaline Cast (Auto) (0-5) /lpf U Epithel Cells (Auto) (0-5) /lpf Urine Bacteria (Auto) (Negative) Hepatitis C Ab (EIA) Hep C Ab Signal/Cutoff SARS-CoV-2, RNA, NAAT (NEGATIVE) Medications Administered Current Inpatient Medications Heparin Sodium (Porcine) (Heparin Sod 5,000 Unit/0.5 Ml Vial) 5,000 units SC Q12H JOHAN Stop: 11/09/21 20:29 Last Admin: 10/10/21 22:40 Dose: 5,000 units Documented by: Hydromorphone HCl (Hydromorphone Inj 0.5 Mg/0.5 Ml Syr) 0.5 mg IV Q3H PRN PRN Reason: Pain Stop: 10/24/21 21:03 Last Admin: 10/11/21 07:45 Dose: 0.5 mg Documented by: Sodium Chloride (Nss 1000ml) 1,000 mls @ 80 mls/hr IV .[id number] [facility] Stop: 11/09/21 16:59 Last Admin: 10/11/21 04:12 Dose: 80 mls/hr Documented by: Acetaminophen (Ofirmev) 1,000 mg in 100 mls @ 400 mls/hr IV Q8H [facility] Stop: 10/13/21 19:54 Last Infusion: 10/11/21 04:39 Dose: Infused Documented by: Levothyroxine Sodium 62.5 mcg/ (Syringe) 3.125 mls @ 2 mls/min IV DAILY@0900 [facility]; Protocol Stop: 11/10/21 08:59 Promethazine HCl 6.25 mg/ (Sodium Chloride) 50.25 mls @ 201 mls/hr IV Q6H PRN PRN Reason: Nausea And Vomiting Stop: 11/09/21 19:54 Last Infusion: 10/11/21 05:01 Dose: Infused Documented by:
[2021-10-11] MEDS ORDERED: MAGNESIUM SULFATE / D5W 1 GM/100 ML BAG IV ONE (08:24)
[2021-10-11] MEDS ORDERED: cefTRIAXone SODIUM 1,000 MG in DEXTROSE 5% 50 ML IV SCH (08:30)
[2021-10-11] MEDS ORDERED: LEVOTHYROXINE SODIUM 62.5 MCG in SYRINGE 0 ML IV SCH (09:00)
[2021-10-11] MEDS: HEPARIN SOD 5,000 UNIT/0.5 ML VIAL SC SCH ×2 (09:45→19:57)
--- NOTE | 2021-10-11 09:50 | Surgery Progress Note ---
Date of Service October 11, 2021 Assessment & Plan (1) Small bowel obstruction due to adhesions: Plan: 66 yr old woman with prior hysterectomy, endometriosis surgery and cytocele repair and findings consistent with small bowel obstruction, potentially closed loop but this is not clear on her CT scan. Worrisome that she has had no improvement overnight with persistence of intense pain and has a worsening leukocytosis. Currently, no ischemia on clinical exam (no acute abdomen) but remains tender. Lactate normal, also suggestive of no ischemia yet. Discussed with pt and her and daughter (oncologist) - latter two on phone. Given the findings above, I am more worried about a closed loop obstruction which as a lower potential to resolve conservatively and carries a risk of bowel ischemia. I would recommend surgery today with exploratory laparotomy, lysis of adhesions, possible bowel resection. Explained that the sooner we can "release" the bowel, the less likely that a resection will be needed. Risks of bleeding, infection, hernia, recurrent obstruction, injury to bowel or other organs all discussed. Expected recovery of 3-5 days in the hospital and 4-6 week recovery period reviewed. Consent signed. For OR today. Admission and Anticipated Discharge Date Admission Date: October 10, 2021 Subjective No improvement overnight. NG with minimal output (5 cc) despite xray showing tip in stomach. Remains with 8/10 pain, requiring pain medications "as frequently as possible", still with dry heaves although these are slightly better. Pain is more focused in upper abdomen now although remains tender throughout. Walking only small amounts in her room. Review of Systems Review of Systems: All systems reviewed & are unremarkable except as noted in HPI & below Physical Exam Constitutional: WD/WN, vitals as above Eyes: PERRL, conjunctivae normal, anicteric sclerae Neck: normal visual inspection and trachea midline Respiratory: normal respiratory effort, lungs clear to auscultation Cardiovascular: RRR, no murmur, no edema Gastrointestinal (Abdomen): Inspection/Auscultation: abdomen normal to inspection and + hypoactive bowel sounds; abdomen not distended and + abnormal bowel sounds Percussion/Palpation: + abdomen tender (mild, right lower quadrant and left lower quadrant) and abdomen soft; no guarding and no hepatosplenomegaly Musculoskeletal: no cyanosis or clubbing, extremities motor strength 5/5 Neurologic: moves all extremities and awake Psychiatric: A+Ox3, euthymic affect Results & Data ([place]) Vital Signs (Past 12 Hours) Vital Signs Temp Pulse Resp BP Pulse Ox 10/11/21 07:24 37.4 C 72 16 138/74 96 10/10/21 22:52 36.9 C 67 14 147/72 H 98 Laboratory Results Abnormal lab results 10/10/21 10/10/21 10/11/21 Range/Units 13:05 13:05 00:40 WBC (4.8-10.8) K/uL RBC (4.2-5.4) M/uL RDW Std Deviation 48.4 H (36.4-46.3) fL RDW Coeff of Ben (11.5-14.5) % Neut # (Auto) 8.64 H (1.4-6.5) K/uL [place] # (Auto) (0.11-0.59) K/uL Immature Gran # (Auto) 0.03 H (0.00-0.02) K/uL Carbon Dioxide 20 L (21-32) mmol/L Anion Gap 15 H (3-11) BUN/Creatinine Ratio 25.3 H (10-20) Glucose 121 H (70-99(Fasting)) mg/dl Total Bilirubin 1.1 H (0.2-1.0) mg/dl Globulin (2.5-4.0) gm/dl Ur Specific [place] > 1.045 H (1.000-1.030) Urine Ketones 2+ H (Negative) Urine Blood 1+ H (Negative) Urine Nitrite Positive A (Negative) Urine WBC (Auto) 5-10 H (0-5) /hpf U Hyaline Cast (Auto) 5-10 H (0-5) /lpf U Epithel Cells (Auto) >30 H (0-5) /lpf Urine Bacteria (Auto) 4+ H (Negative) 10/11/21 10/11/21 Range/Units 06:56 06:56 WBC 19.69 H (4.8-10.8) K/uL RBC 3.92 L (4.2-5.4) M/uL RDW Std Deviation 51.9 H (36.4-46.3) fL RDW Coeff of Ben 14.8 H (11.5-14.5) % Neut # (Auto) 17.29 H (1.4-6.5) K/uL [place] # (Auto) 0.96 H (0.11-0.59) K/uL Immature Gran # (Auto) 0.07 H (0.00-0.02) K/uL Carbon Dioxide (21-32) mmol/L Anion Gap (3-11) BUN/Creatinine Ratio 24.6 H (10-20) Glucose 130 H (70-99(Fasting)) mg/dl Total Bilirubin (0.2-1.0) mg/dl Globulin 2.4 L (2.5-4.0) gm/dl Ur Specific [place] (1.000-1.030) Urine Ketones (Negative) Urine Blood (Negative) Urine Nitrite (Negative) Urine WBC (Auto) (0-5) /hpf U Hyaline Cast (Auto) (0-5) /lpf U Epithel Cells (Auto) (0-5) /lpf Urine Bacteria (Auto) (Negative) Of note, lactate level normal at 0.7
--- NOTE | 2021-10-11 10:23 | Anesthesiology Consultation ---
Date of Service October 11, 2021 Assessment & Plan (1) Encounter for pre-operative examination: Chart Review Chart Review: Acceptable Risk for Surgery History Surgery Operation Date: 10/11/21 13:00 Proposed Procedures p Exploratory Laparotomy - Janny Palacios MD Height/Weight Height: 5 ft 8 in Weight: 45.6 kg Allergies Allergy/AdvReac Type Severity Reaction Status Date / Time No Known Allergies Allergy Verified 10/10/21 14:58 Medications Home Medications Medication Instructions Recorded Confirmed Last Taken levothyroxine 125 mcg tablet 125 mcg PO DAILYBB 04/04/18 10/10/21 10/10/21 (Synthroid) Lactobacillus 40-Bifidobact 0 cap PO HS 10/10/21 10/10/21 10/09/21 3-S.thermophilus 100 billion cell capsule (Probiotic) ascorbic acid (vitamin C) 1,000 mg 0 mg PO HS 10/10/21 10/10/21 10/09/21 tablet (Vitamin C) calcium carbonate 500 mg calcium 0 mg PO HS 10/10/21 10/10/21 10/09/21 (1,250 mg) tablet cholecalciferol (vitamin D3) 25 0 mcg PO HS 10/10/21 10/10/21 10/09/21 mcg (1,000 unit) tablet (Vitamin D3) cyanocobalamin (vitamin B-12) 0 mcg PO HS 10/10/21 10/10/21 10/09/21 1,000 mcg tablet (Vitamin B-12) multivitamin 1 tab PO HS 10/10/21 10/10/21 10/09/21 zinc 50 mg tablet 0 mg PO HS 10/10/21 10/10/21 10/09/21 Active Medications Generic Name Dose Route Start Last Admin Trade Name Freq PRN Reason Stop Dose Admin Heparin Sodium (Porcine) 5,000 units 10/10/21 20:30 10/11/21 09:45 Heparin Sod 5,000 Unit/0.5 Ml Vial SC 11/09/21 20:29 Not Given Q12H JOHAN Hydromorphone HCl 0.5 mg 10/10/21 21:04 10/11/21 07:45 Hydromorphone Inj 0.5 Mg/0.5 Ml Syr IV 10/24/21 21:03 0.5 mg Q3H PRN Administration Pain Sodium Chloride 1,000 mls @ 80 mls/hr 10/10/21 17:00 10/11/21 04:12 Nss 1000ml IV 11/09/21 16:59 80 mls/hr .[id number] JOHAN Administration Acetaminophen 1,000 mg in 100 mls @ 400 mls/hr 10/10/21 19:55 10/11/21 04:39 Ofirmev IV 10/13/21 19:54 Infused Q8H JOHAN Infusion Promethazine HCl 6.25 mg/ 50.25 mls @ 201 mls/hr 10/10/21 19:55 10/11/21 05:01 Sodium Chloride IV 11/09/21 19:54 Infused Q6H PRN Infusion Nausea And Vomiting Ceftriaxone Sodium 1,000 mg/ 60 mls @ 100 mls/hr 10/11/21 08:30 10/11/21 10:17 Dextrose IV 10/13/21 08:29 100 mls/hr Q24H JOHAN Administration Protocol Past Medical History Medical History Endometriosis Hip pain, right History of cystocele Hypothyroidism Melanoma Myofascial pain Sacroiliitis Past Family History Family History Father Colorectal cancer Mother Colorectal cancer Past Surgical History Surgical History H/O: hysterectomy History of colonoscopy with polypectomy Social History Smoking Status: Former smoker tobacco type: cigarettes Do You Dip or Chew Tobacco: No Smoking End Date: 1979 Hx Alcohol Use: Yes Alcohol type: wine alcohol intake frequency: a few times a month Hx Substance Use: No Physical Exam Vital Signs Last Vital Signs Temp 37.4 C 10/11/21 07:24 Pulse 72 10/11/21 07:24 Resp 16 10/11/21 07:24 BP 138/74 10/11/21 07:24 Pulse Ox 96 10/11/21 07:24 Testing Laboratory Results 10/11/21 06:56 10/11/21 06:56 Urine Color Yellow 10/11/21 00:40 Urine Appearance Clear (Clear) 10/11/21 00:40 Urine pH 5.0 (4.5-7.5) 10/11/21 00:40 Ur Specific [place] > 1.045 (1.000-1.030) H 10/11/21 00:40 Urine Protein Negative (Negative) 10/11/21 00:40 Urine Glucose (UA) Negative (Negative) 10/11/21 00:40 Urine Ketones 2+ (Negative) H 10/11/21 00:40 Urine Nitrite Positive (Negative) A 10/11/21 00:40 Ur Leukocyte Esterase Negative (Negative) 10/11/21 00:40 Urine WBC (Auto) 5-10 /hpf (0-5) H 10/11/21 00:40 Urine RBC (Auto) 0-4 /hpf (0-4) 10/11/21 00:40 U Hyaline Cast (Auto) 5-10 /lpf (0-5) H 10/11/21 00:40 U Epithel Cells (Auto) >30 /lpf (0-5) H 10/11/21 00:40 Urine Bacteria (Auto) 4+ (Negative) H 10/11/21 00:40 Electrocardiogram Date: 10/11/21 Findings: + NSR @ and + NSST changes
--- NOTE | 2021-10-11 11:20 | XRay Report ---
KUB HISTORY: Small bowel obstruction. Follow-up. COMPARISON: KUB 10/10/2021. FINDINGS: Mildly dilated gas-filled loops of small bowel are again seen within the abdomen consistent with a small bowel obstruction. Nasogastric tube terminates in the distal stomach. No renal calculi . No ureteral calculi. No pneumoperitoneum or pneumatosis. IMPRESSION: 1. No change in the small bowel obstructive pattern. 2. Nasogastric tube terminates in the distal stomach. ACT 112: Negative or not required by law. Electronically signed by: Preston Joshi M.D. 10/11/2021 11:19 AM
[2021-10-11] MEDS ORDERED: MIDAZOLAM HCL 1 MG/ML 2ML VIAL ONE (14:05)
[2021-10-11] MEDS ORDERED: fentaNYL citrate 100 MCG/2 ML VIAL ONE ×2 (14:05→15:17)
[2021-10-11] MEDS ORDERED: BUPIVACAINE 0.5 % 5 MG/1 ML MPF 30ML VIAL ONE (14:39)
[2021-10-11] MEDS ORDERED: ATROPINE SULFATE 0.1 MG/ML 10ML SYR IV PRN (14:51)
[2021-10-11] MEDS ORDERED: PROMETHAZINE HCL 12.5 MG in SODIUM CHLORIDE 0.9% 50 ML IV PRN (14:51)
[2021-10-11] MEDS ORDERED: ONDANSETRON INJ 2 MG/ML 2 ML VIAL IV PRN (14:51)
[2021-10-11] MEDS ORDERED: SCOPOLAMINE 1 MG TDSY TD ONE (14:52)
[2021-10-11] MEDS ORDERED: SUGAMMADEX SODIUM 200 MG/2 ML VIAL IV ONE (15:14)
[2021-10-11] MEDS ORDERED: GLYCOPYRROLATE 0.2 MG/ML VIAL ONE (16:42)
[2021-10-11] MEDS ORDERED: DEXAMETHASONE SOD INJ 4 MG/ML VIAL ONE (16:42)
[2021-10-11] MEDS ORDERED: ONDANSETRON INJ 2 MG/ML 2 ML VIAL ONE (16:42)
[2021-10-11] MEDS ORDERED: LIDOCAINE 2% 2 ML VIAL/AMP(20MG/ML) INFIL ONE (16:42)
[2021-10-11] MEDS ORDERED: NEOSTIGMINE METHYLSULFATE 1 MG/ML 10ML VIAL ONE (16:42)
[2021-10-11] MEDS ORDERED: SUCCINYLCHOLINE 100MG/5ML SYR IV ONE (16:42)
[2021-10-11] MEDS ORDERED: ROCURONIUM BROMIDE 10 MG/ML 5 ML VIAL IV ONE (16:42)
[2021-10-11] MEDS ORDERED: PROPOFOL IV EMULSION 10 MG/ML 20 ML VIAL IV ONE (16:42)
--- NOTE | 2021-10-11 16:43 | Operative Report ---
Post Operative Report Pre & Post Diagnosis Operation Date: 10/11/21 13:00 Pre-Op Diagnosis: Small bowel obstruction. Post-Op Diagnosis: Small bowel obstruction with ischemic bowel I identified the patient and participated in the time-out.: Yes Procedure Operation Date: 10/11/21 13:00 Actual Procedures p Exploratory Laparotomy, partial small Bowel Resection. - Janny Palacios MD Surgeon Janny Palacios MD Acid Dipper none Estimated Blood Loss 5 Findings Consistent with Post-Op Diagnosis adhesive band from right lower quadrant tethering to mesentery with 8-10 inch loop of ileum that had torsed and was ischemic (black) Fluids 1600 cc Specimens small bowel Drains none Anesthesia Type General Complications none Disposition Disposition: Recovery Room Indications 66 yr old woman with history of prior pelvis surgery presented with acute abdominal pain and CT showing small bowel obstruction. Initially treated conservatively but symptoms perisisted over first 12 hrs of hospital stay and WBC count increased. Consented for exploratory laparotomy. Description of Procedure She was on mefoxin preoperatively. After the induction of GET, she had placement of SCD's. Her abdomen was sterilely prepped and draped. After time out, a lower midline incision was made and carried through the fascia. The peritoneum was sharply entered. Immediately, a loop of black ischemic small bowel was noted in the pelvis and right lower quadrant. Sponges were placed to protect the skin edges from contamination. The loop was eviscerated and traced back to a tight band constricting its mesenteric supply from the right lower quadrant. The loop of bowel had twisted around this band. The band was ligated with vicryl ties and divided. This allowed the intestine to be freed and untwisted. The bowel was run from ligament of Trietz to cecum and no other areas of abnormality noted. Decision was made to proceed with a partial small bowel resection. Bowel clamps were applied proximally and distally. An area was chosen both proximal and distal to the ischemia. This area was free of changes and noted to have a good blood supply. The bowel was divided with firings of the TAM 45 mm blue load stapler both proximally and distally. The mesentary was divided between clamps with 2-0 and 3-0 vicryl ties. The ischemic loop was sent off the field as specimen. Prior to anastamosis, the abdomen was irrigated with 1 L of saline. The two small bowel ends were brought together with 3-0 silk stay sutures. A side to side (functional end to end) anastamosis was performed using the TAM 45 stapler through two enterotomies to form the connection. The connection was closed with a TA 45 blue load stapler. The mesenteric defect was closed with silk sutures. The ends of the staple line were dunked with silk suture. No tension was noted on the anastamosis. Bowel clamps were released and the anastamosis placed into the abdominal cavity and covered with omentum. The abdomen was irrigated again. NG position was checked. 30 cc of 0.5% marcaine was injected for local anesthesia. After counts were correct, the fascia was closed with a running looped 1 prolene suture. The wound was irrigated and closed with heriberto. A sterile dressing was applied. As her bladder was noted to be distended by the completion of the procedure, she was straight cath'ed. She was extubated and taken to recovery in stable condition. I attest to the content of the Intraoperative Record and any orders documented therein. Any exceptions are noted below.
[2021-10-11] MEDS ORDERED: HYDROmorphone INJ 1 MG/ML SYRINGE ONE (16:44)
[2021-10-11] MEDS: HYDROmorphone INJ 1 MG/ML SYRINGE IV PRN ×4 (16:45→17:15)
--- NOTE | 2021-10-11 17:26 | Anesthesiology Progress Note ---
Date of Service October 11, 2021 Anesthesia Post Procedure Vital Signs Vital Signs: Temp Pulse Pulse Resp BP Pulse Ox 10/11/21 17:25 36.8 C 81 14 115/54 L 98 10/11/21 17:15 78 18 118/60 97 10/11/21 17:05 79 12 106/55 L 94 10/11/21 16:55 71 12 112/60 99 10/11/21 16:45 81 19 111/70 99 10/11/21 16:37 36.2 C L 81 19 105/60 99 10/11/21 07:24 37.4 C 72 16 138/74 96 10/10/21 22:52 36.9 C 67 14 147/72 H 98 10/10/21 19:47 36.8 C 61 18 137/70 100 10/10/21 18:00 55 L 20 125/64 95 Pain Intensity Abdomen: Pain Intensity: 3 Transfer of Care Handoff Completed per policy Notes Mental Status: alert / awake / arousable Patient Amnestic to Procedure: Yes Nausea / Vomiting: adequately controlled Pain: adequately controlled Airway Patency, RR, SpO2: stable & adequate BP & HR: stable & adequate Hydration State: stable & adequate Anesthetic Complications: no major complications apparent
[2021-10-11] MEDS ORDERED: PIPERACILL/TAZOBAC CONSULT ACTIVE PRN (17:54)
[2021-10-11] MEDS ORDERED: PIPERACILLIN/TAZOBACTAM 3.375 GM in DEXTROSE 5% 100 ML IV ONE (19:30)
[2021-10-11] MEDS: PIPERACILLIN/TAZOBACTAM 3.375 GM in DEXTROSE 5% 100 ML IV SCH (23:00)
[2021-10-12] MEDS: ACETAMINOPHEN 1,000 MG/100 ML VIAL IV SCH ×3 (02:57→19:43)
[2021-10-12] MEDS: SODIUM CHLORIDE 0.9% 1000ML 1,000 ML IV SCH ×2 (03:00→15:18)
[2021-10-12 06:21] LABS: Hematocrit (blood only) 34.4 % (37-47); Hemoglobin 11.2 g/dL (12.0-16.0); Mean Corpuscular Hemoglobin 31.5 pg (25-34); Mean Corpuscular Hgb Conc 32.6 g/dL (32-36); Mean Corpuscular Volume 96.6 fL (80-100); Mean Platelet Volume 10.5 fL (7.4-10.4); Platelet Count 224 K/uL (130-400); RDW Coefficient of Variation 15.3 % (11.5-14.5); RDW Standard Deviation 53.6 fL (36.4-46.3); Red Blood Count 3.56 M/uL (4.2-5.4); White Blood Count 10.36 K/uL (4.8-10.8)
[2021-10-12 06:49] LABS: Calcium 8.4 mg/dl (8.5-10.1); Creatinine Clr Calc Pharmacy 66.2 ml/min; Est GFR (African American) 110.3 ml/min; Est GFR (Non-African American) 95.1 ml/min; Phosphorus 1.7 mg/dl (2.5-4.9); Potassium 4.2 mmol/L (3.5-5.1)
[2021-10-12] MEDS: PIPERACILLIN/TAZOBACTAM 3.375 GM in DEXTROSE 5% 100 ML IV SCH ×2 (07:43→15:33)
[2021-10-12] MEDS ORDERED: SODIUM PHOSPHATE 3 MMOL/1 ML INFUSION IV STA (08:09)
--- NOTE | 2021-10-12 08:11 | Hospitalist Progress Note ---
Date of Service October 12, 2021 Assessment & Plan (1) Small bowel obstruction due to adhesions: (2) Hypothyroidism: Plan: This is a 66-year-old female who has significant past medical history of hypothyroidism, gastroparesis and arthritis who presents to ED secondary to right lower quadrant and periumbilical abdominal pain x1 day. Abdominal pain with N/V/D SBO admitted to med/surg General surgery consulted - Dr. Janny Palacios NG tube placed on admission, LIS NPO IVF NS 80cc/hr IV apap scheduled, prn IV dilaudid 10/11 - pt continues to have abdominal pain, despite NG tube placement and pain medications White blood cell count elevated today as well, lactate normal Started empiric antibiotic, ceftriaxone Plan for ex lap today by surgery 10/12 pt is s/p ex lap (10/11) WBC down - normalized pt clinically much improved, with only some abd. tenderness, secondary to surgery Ischemic bowel noted on surgery Recommend 7-day of antibiotics, can change to p.o. on discharge Prolonged QTC on EKG EKG change High sensit. trops 2-5 she had nuclear stress test 07/2021 that was negative - at that time she was having increased fatigue and sob repeat EKG this AM -QTC shortened, nonspecific T wave abnormality replaced T wave inversion in inferior leads Echo ordered on admission - mild concentric LVH. LV wall motion is normal. LVEF 60- 65%. Grade 1 diastolic dysfunction. There is no significant valvular heart disease. Pt denies any chest pain Hypothyroidism TSH 0.9 cont. IV levothyroxine for now DVT ppx: SCDs, (SQ heparin on hold now for surgery) PCP: Dr. Barbi El FULL CODE Dispo: Med/surg, likely to remain hospitalized next 2-3 days Admission and Anticipated Discharge Date Admission Date: October 10, 2021 Subjective Patient seen in follow-up of small bowel obstruction Underwent exploratory laparotomy yesterday with surgery Ischemic bowel noted on surgery Currently patient is laying in bed, in no acute distress Denies fevers, chills, chest pain, shortness of breath Abdominal discomfort is much improved, however patient had some nausea this a.m. NG tube continued per surgery Review of Systems Review of Systems: All systems reviewed & are unremarkable except as noted in Subjective Physical Exam Physical Exam: Constitutional: WD/WN, in NAD Head: Normocephalic, Atraumatic Eyes: PERRL, EOMI, conjunctivae normal, anicteric sclerae ENMT: NG tube placed Neck: normal visual inspection, supple Respiratory: normal respiratory effort, lungs clear to auscultation, no wheeze, rales, rhonchi. Normal insp/exp effort, no accessory muscle use Cardiovascular: RRR, no murmur, no edema Chest: normal inspection of chest Abdomen: +BS, soft, slight tenderness throughout (much improved) Musculoskeletal:extremities motor strength 5/5 Skin: no rashes, warm and dry normal turgor Neurologic: PERRL, EOMI, no face palsy, no dysarthria, moves all extremities Psychiatric: A+Ox3, euthymic affect Results & Data Results & Data ([facility]) Vital Signs (Past 12 Hours) Vital Signs Temp Pulse Resp BP BP Pulse Ox 10/12/21 07:19 37 C 77 16 120/68 95 10/12/21 03:03 37.1 C 75 16 112/68 95 10/11/21 23:07 37.0 C 84 16 110/65 97 10/11/21 20:48 37.1 C 92 H 16 113/70 96 Laboratory Results 10/12/21 10/12/21 10/11/21 Range/Units 05:33 05:33 06:56 WBC 10.36 (4.8-10.8) K/uL RBC 3.56 L (4.2-5.4) M/uL Hgb 11.2 L (12.0-16.0) g/dL Hct 34.4 L (37-47) % MCV 96.6 (80-100) fL MCH 31.5 (25-34) pg MCHC 32.6 (32-36) g/dL RDW Std Deviation 53.6 H (36.4-46.3) fL RDW Coeff of Ben 15.3 H (11.5-14.5) % Plt Count 224 (130-400) K/uL MPV 10.5 H (7.4-10.4) fL Sodium 138 (136-145) mmol/L Potassium 4.2 (3.5-5.1) mmol/L Chloride 108 H (98-107) mmol/L Carbon Dioxide 25 (21-32) mmol/L Anion Gap 5 (3-11) BUN 14 (6-23) mg/dl Creatinine 0.61 (0.6-1.2) mg/dl Est Cr Clr Drug Dosing 66.2 ml/min Est GFR ( Amer) 110.3 ml/min Est GFR (Non-Af Amer) 95.1 ml/min BUN/Creatinine Ratio 23.0 H (10-20) Glucose 114 H (70-99(Fasting)) mg/dl Calcium 8.4 L (8.5-10.1) mg/dl Phosphorus 1.7 L D 3.5 (2.5-4.9) mg/dl Magnesium 2.0 (1.7-2.4) mg/dl Hepatitis C Ab (EIA) (NON-REACTIVE) Hep C Ab Signal/Cutoff (<1.00) 10/10/21 Range/Units 13:05 WBC (4.8-10.8) K/uL RBC (4.2-5.4) M/uL Hgb (12.0-16.0) g/dL Hct (37-47) % MCV (80-100) fL MCH (25-34) pg MCHC (32-36) g/dL RDW Std Deviation (36.4-46.3) fL RDW Coeff of Ben (11.5-14.5) % Plt Count (130-400) K/uL MPV (7.4-10.4) fL Sodium (136-145) mmol/L Potassium (3.5-5.1) mmol/L Chloride (98-107) mmol/L Carbon Dioxide (21-32) mmol/L Anion Gap (3-11) BUN (6-23) mg/dl Creatinine (0.6-1.2) mg/dl Est Cr Clr Drug Dosing ml/min Est GFR ( Amer) ml/min Est GFR (Non-Af Amer) ml/min BUN/Creatinine Ratio (10-20) Glucose (70-99(Fasting)) mg/dl Calcium (8.5-10.1) mg/dl Phosphorus (2.5-4.9) mg/dl Magnesium (1.7-2.4) mg/dl Hepatitis C Ab (EIA) NON-REACTIVE (NON-REACTIVE) Hep C Ab Signal/Cutoff 0.01 (<1.00) Medications Administered Current Inpatient Medications Heparin Sodium (Porcine) (Heparin Sod 5,000 Unit/0.5 Ml Vial) 5,000 units SC Q12H JOHAN Stop: 11/09/21 20:29 Last Admin: 10/11/21 19:57 Dose: 5,000 units Documented by: Hydromorphone HCl (Hydromorphone Inj 0.5 Mg/0.5 Ml Syr) 0.5 mg IV Q3H PRN PRN Reason: Pain Stop: 10/24/21 21:03 Last Admin: 10/11/21 13:28 Dose: 0.5 mg Documented by: Sodium Chloride (Nss 1000ml) 1,000 mls @ 80 mls/hr IV .[id number] JOHAN Stop: 11/09/21 16:59 Last Admin: 10/12/21 03:00 Dose: 80 mls/hr Documented by: Acetaminophen (Ofirmev) 1,000 mg in 100 mls @ 400 mls/hr IV Q8H JOHAN Stop: 10/13/21 19:54 Last Infusion: 10/12/21 03:13 Dose: Infused Documented by: Promethazine HCl 6.25 mg/ (Sodium Chloride) 50.25 mls @ 201 mls/hr IV Q6H PRN PRN Reason: Nausea And Vomiting Stop: 11/09/21 19:54 Last Infusion: 10/11/21 05:01 Dose: Infused Documented by: Levothyroxine Sodium 62.5 mcg/ (Syringe) 3.125 mls @ 1.563 mls/min IV Q72H [facility]; Protocol Stop: 11/10/21 08:59 Piperacillin Sod/Tazobactam (Sod 3.375 gm/ Dextrose) 115 mls @ 28.75 mls/hr IV Q8H [facility]; Protocol Stop: 10/21/21 18:29 Last Admin: 10/12/21 07:43 Dose: 28.8 mls/hr Documented by: Miscellaneous Information (Piperacill/Tazobac Consult Active) 1 ea N/A UD PRN PRN Reason: Consult Stop: 11/10/21 17:53 Sodium Phosphate (Sodium Phosphate 3 Mmol/1 Ml Infusion) 12 mmol IV NOW STA Stop: 10/12/21 08:10
[2021-10-12] MEDS ORDERED: SODIUM PHOSPHATE 12 MMOL in SODIUM CHLORIDE 0.9% 250 ML IV ONE (08:30)
--- NOTE | 2021-10-12 09:24 | Surgery Progress Note ---
Date of Service October 12, 2021 Assessment & Plan (1) Small bowel obstruction due to adhesions: Plan: POD#1 from exp lap, CHEY, partial small bowel resection for closed loop obstruction with ischemic bowel. Doing well. Given nausea and hypoactive bowel tones, would keep ng today. OK to have ice chips and life savers or other lozenges. Increase activity. Admission and Anticipated Discharge Date Admission Date: October 10, 2021 Subjective Feels better. Mild nausea this morning. No flatus. Surgical incision pain but prior is gone. Review of Systems Review of Systems: All systems reviewed & are unremarkable except as noted in HPI & below Physical Exam Constitutional: WD/WN, vitals as above Eyes: PERRL, conjunctivae normal, anicteric sclerae Respiratory: normal respiratory effort, lungs clear to auscultation Cardiovascular: RRR, no murmur, no edema Gastrointestinal (Abdomen): Inspection/Auscultation: abdomen normal to inspection, + abdominal surgical incision (clean) and + hypoactive bowel sounds; abdomen not distended Percussion/Palpation: abdomen soft; no guarding Neurologic: moves all extremities; no focal motor deficits Results & Data ([facility]) Vital Signs (Past 12 Hours) Vital Signs Temp Pulse Resp BP Pulse Ox 10/12/21 07:19 37 C 77 16 120/68 95 10/12/21 03:03 37.1 C 75 16 112/68 95 10/11/21 23:07 37.0 C 84 16 110/65 97 Laboratory Results 10/12/21 10/12/21 10/11/21 Range/Units 05:33 05:33 06:56 WBC 10.36 (4.8-10.8) K/uL RBC 3.56 L (4.2-5.4) M/uL Hgb 11.2 L (12.0-16.0) g/dL Hct 34.4 L (37-47) % MCV 96.6 (80-100) fL MCH 31.5 (25-34) pg MCHC 32.6 (32-36) g/dL RDW Std Deviation 53.6 H (36.4-46.3) fL RDW Coeff of Ben 15.3 H (11.5-14.5) % Plt Count 224 (130-400) K/uL MPV 10.5 H (7.4-10.4) fL Sodium 138 (136-145) mmol/L Potassium 4.2 (3.5-5.1) mmol/L Chloride 108 H (98-107) mmol/L Carbon Dioxide 25 (21-32) mmol/L Anion Gap 5 (3-11) BUN 14 (6-23) mg/dl Creatinine 0.61 (0.6-1.2) mg/dl Est Cr Clr Drug Dosing 66.2 ml/min Est GFR ( Amer) 110.3 ml/min Est GFR (Non-Af Amer) 95.1 ml/min BUN/Creatinine Ratio 23.0 H (10-20) Glucose 114 H (70-99(Fasting)) mg/dl Calcium 8.4 L (8.5-10.1) mg/dl Phosphorus 1.7 L D 3.5 (2.5-4.9) mg/dl Magnesium 2.0 (1.7-2.4) mg/dl Hepatitis C Ab (EIA) (NON-REACTIVE) Hep C Ab Signal/Cutoff (<1.00) 10/10/21 Range/Units 13:05 WBC (4.8-10.8) K/uL RBC (4.2-5.4) M/uL Hgb (12.0-16.0) g/dL Hct (37-47) % MCV (80-100) fL MCH (25-34) pg MCHC (32-36) g/dL RDW Std Deviation (36.4-46.3) fL RDW Coeff of Ben (11.5-14.5) % Plt Count (130-400) K/uL MPV (7.4-10.4) fL Sodium (136-145) mmol/L Potassium (3.5-5.1) mmol/L Chloride (98-107) mmol/L Carbon Dioxide (21-32) mmol/L Anion Gap (3-11) BUN (6-23) mg/dl Creatinine (0.6-1.2) mg/dl Est Cr Clr Drug Dosing ml/min Est GFR ( Amer) ml/min Est GFR (Non-Af Amer) ml/min BUN/Creatinine Ratio (10-20) Glucose (70-99(Fasting)) mg/dl Calcium (8.5-10.1) mg/dl Phosphorus (2.5-4.9) mg/dl Magnesium (1.7-2.4) mg/dl Hepatitis C Ab (EIA) NON-REACTIVE (NON-REACTIVE) Hep C Ab Signal/Cutoff 0.01 (<1.00)
[2021-10-12] MEDS: HYDROmorphone INJ 0.5 MG/0.5 ML SYR IV PRN (10:05)
[2021-10-12] MEDS: HEPARIN SOD 5,000 UNIT/0.5 ML VIAL SC SCH ×2 (10:05→19:46)
[2021-10-12] MEDS ORDERED: Nursing to Pharmacy Communication SCH (10:30)
[2021-10-12] MEDS ORDERED: COUGH DROP (SUGAR FREE) LOZ 24 LOZ/1 BOX BUCCAL PRN (11:21)
--- NOTE | 2021-10-12 13:27 | Electrocardiogram Report ---
Test Reason : Blood Pressure : / mmHG Vent. Rate : 066 BPM Atrial Rate : 066 BPM P-R Int : 196 ms QRS Dur : 106 ms QT Int : 422 ms P-R-T Axes : 061 -24 041 degrees QTc Int : 442 ms Normal sinus rhythm Minimal voltage criteria for LVH, may be normal variant Borderline ECG When compared with ECG of 10-OCT-2021 13:11, Nonspecific T wave abnormality has replaced inverted T waves in Inferior leads QT has shortened Confirmed by Shashank Aldridge ([id number]) on 10/12/2021 1:27:13 PM Referred By: REFERRED SELF Confirmed By:Shashank Aldridge
[2021-10-13] MEDS: PIPERACILLIN/TAZOBACTAM 3.375 GM in DEXTROSE 5% 100 ML IV SCH ×3 (00:02→16:00)
[2021-10-13] MEDS: SODIUM CHLORIDE 0.9% 1000ML 1,000 ML IV SCH ×2 (00:04→12:32)
[2021-10-13] MEDS: ACETAMINOPHEN 1,000 MG/100 ML VIAL IV SCH ×2 (04:05→12:39)
[2021-10-13 06:01] LABS: Hematocrit (blood only) 29.5 % (37-47); Hemoglobin 9.8 g/dL (12.0-16.0); Mean Corpuscular Hgb Conc 33.2 g/dL (32-36); Mean Corpuscular Volume 96.4 fL (80-100); Mean Platelet Volume 10.3 fL (7.4-10.4); Platelet Count 209 K/uL (130-400); RDW Coefficient of Variation 15.2 % (11.5-14.5); RDW Standard Deviation 54.1 fL (36.4-46.3); Red Blood Count 3.06 M/uL (4.2-5.4); White Blood Count 9.05 K/uL (4.8-10.8)
[2021-10-13 06:50] LABS: Calcium 8.1 mg/dl (8.5-10.1); Creatinine Clr Calc Pharmacy 80.8 ml/min; Est GFR (African American) 117.7 ml/min; Est GFR (Non-African American) 101.6 ml/min; Magnesium 1.9 mg/dl (1.7-2.4); Phosphorus 1.3 mg/dl (2.5-4.9); Potassium 3.3 mmol/L (3.5-5.1)
[2021-10-13] MEDS ORDERED: POTASSIUM PHOS 3 MMOL/1 ML INFUSION IV STA (06:54)
[2021-10-13] MEDS ORDERED: POTASSIUM PHOSPHATE 30 MMOL in SODIUM CHLORIDE 0.9% 500 ML IV ONE (07:15)
--- NOTE | 2021-10-13 08:14 | Hospitalist Progress Note ---
Date of Service October 13, 2021 Assessment & Plan (1) Small bowel obstruction due to adhesions: (2) Hypothyroidism: Plan: This is a 66-year-old female who has significant past medical history of hypothyroidism, gastroparesis and arthritis who presents to ED secondary to right lower quadrant and periumbilical abdominal pain x1 day. Abdominal pain with N/V/D SBO admitted to med/surg General surgery consulted - Dr. Janny Palacios 10/12 pt is s/p ex lap (10/11) 10/13 NG tube now removed Plan for 7 days of Abx, as ischemic bowel noted on surgery, cont. IV zosyn for now plan for PO Abx on DC IVF IV apap scheduled, prn IV dilaudid Prolonged QTC on EKG EKG change High sensit. trops 2-5 she had nuclear stress test 07/2021 that was negative - at that time she was having increased fatigue and sob repeat EKG this AM -QTC shortened, nonspecific T wave abnormality replaced T wave inversion in inferior leads Echo ordered on admission - mild concentric LVH. LV wall motion is normal. LVEF 60- 65%. Grade 1 diastolic dysfunction. There is no significant valvular heart disease. Pt denies any chest pain Hypothyroidism TSH 0.9 cont. IV levothyroxine for now DVT ppx: SCDs,SQ heparin PCP: Dr. Barbi El FULL CODE Dispo: Med/surg, likely to remain hospitalized next 2-3 days Admission and Anticipated Discharge Date Admission Date: October 10, 2021 Subjective Patient seen in follow-up of small bowel obstruction Underwent exploratory laparotomy day before yesterday Ischemic bowel noted on surgery Currently patient is laying in bed, in no acute distress Denies fevers, chills, chest pain, shortness of breath Abdominal discomfort is much improved NG tube removed today Review of Systems Review of Systems: All systems reviewed & are unremarkable except as noted in Subjective Physical Exam Physical Exam: Constitutional: WD/WN, in NAD Head: Normocephalic, Atraumatic Eyes: PERRL, EOMI, conjunctivae normal, anicteric sclerae ENMT: NG tube placed Neck: normal visual inspection, supple Respiratory: normal respiratory effort, lungs clear to auscultation, no wheeze, rales, rhonchi. Normal insp/exp effort, no accessory muscle use Cardiovascular: RRR, no murmur, no edema Chest: normal inspection of chest Abdomen: +BS, soft, slight tenderness throughout (much improved) Musculoskeletal:extremities motor strength 5/5 Skin: no rashes, warm and dry normal turgor Neurologic: PERRL, EOMI, no face palsy, no dysarthria, moves all extremities Psychiatric: A+Ox3, euthymic affect Results & Data Results & Data ([facility]) Vital Signs (Past 12 Hours) Vital Signs Temp Pulse Resp BP Pulse Ox 10/13/21 07:47 37 C 74 16 127/71 96 10/12/21 22:52 37.2 C 79 18 112/71 92 Laboratory Results 10/13/21 10/13/21 Range/Units 05:44 05:44 WBC 9.05 (4.8-10.8) K/uL RBC 3.06 L (4.2-5.4) M/uL Hgb 9.8 L (12.0-16.0) g/dL Hct 29.5 L (37-47) % MCV 96.4 (80-100) fL MCH 32.0 (25-34) pg MCHC 33.2 (32-36) g/dL RDW Std Deviation 54.1 H (36.4-46.3) fL RDW Coeff of Ben 15.2 H (11.5-14.5) % Plt Count 209 (130-400) K/uL MPV 10.3 (7.4-10.4) fL Sodium 141 (136-145) mmol/L Potassium 3.3 L D (3.5-5.1) mmol/L Chloride 110 H (98-107) mmol/L Carbon Dioxide 23 (21-32) mmol/L Anion Gap 8 (3-11) BUN 14 (6-23) mg/dl Creatinine 0.50 L (0.6-1.2) mg/dl Est Cr Clr Drug Dosing 80.8 ml/min Est GFR ( Amer) 117.7 ml/min Est GFR (Non-Af Amer) 101.6 ml/min BUN/Creatinine Ratio 28.0 H (10-20) Glucose 82 (70-99(Fasting)) mg/dl Calcium 8.1 L (8.5-10.1) mg/dl Phosphorus 1.3 L* (2.5-4.9) mg/dl Magnesium 1.9 (1.7-2.4) mg/dl Medications Administered Current Inpatient Medications Heparin Sodium (Porcine) (Heparin Sod 5,000 Unit/0.5 Ml Vial) 5,000 units SC Q12H [facility] Stop: 11/09/21 20:29 Last Admin: 10/12/21 19:46 Dose: 5,000 units Documented by: Hydromorphone HCl (Hydromorphone Inj 0.5 Mg/0.5 Ml Syr) 0.5 mg IV Q3H PRN PRN Reason: Pain Stop: 10/24/21 21:03 Last Admin: 10/12/21 10:05 Dose: 0.5 mg Documented by: Sodium Chloride (Nss 1000ml) 1,000 mls @ 80 mls/hr IV .[id number] [facility] Stop: 11/09/21 16:59 Last Admin: 10/13/21 00:04 Dose: 80 mls/hr Documented by: Acetaminophen (Ofirmev) 1,000 mg in 100 mls @ 400 mls/hr IV Q8H [facility] Stop: 10/13/21 19:54 Last Infusion: 10/13/21 04:32 Dose: Infused Documented by: Promethazine HCl 6.25 mg/ (Sodium Chloride) 50.25 mls @ 201 mls/hr IV Q6H PRN PRN Reason: Nausea And Vomiting Stop: 11/09/21 19:54 Last Infusion: 10/11/21 05:01 Dose: Infused Documented by: Levothyroxine Sodium 62.5 mcg/ (Syringe) 3.125 mls @ 1.563 mls/min IV Q72H [facility]; Protocol Stop: 11/10/21 08:59 Piperacillin Sod/Tazobactam (Sod 3.375 gm/ Dextrose) 115 mls @ 28.75 mls/hr IV Q8H [facility]; Protocol Stop: 10/21/21 18:29 Last Admin: 10/13/21 07:51 Dose: 28.8 mls/hr Documented by: Potassium Phosphate 30 mmol/ (Sodium Chloride) 510 mls @ 100 mls/hr IV 0715 ONE Stop: 10/13/21 12:20 Last Admin: 10/13/21 07:05 Dose: 100 mls/hr Documented by: Menthol (Cough Drop (Sugar Free) Erlinda 24 Erlinda/1 Box) 1 erlinda BUCCAL PRN PRN PRN Reason: Cough Stop: 11/11/21 11:20 Last Admin: 10/12/21 12:34 Dose: 1 erlinda Documented by: Miscellaneous Information (Piperacill/Tazobac Consult Active) 1 ea N/A UD PRN PRN Reason: Consult Stop: 11/10/21 17:53
[2021-10-13] MEDS: HEPARIN SOD 5,000 UNIT/0.5 ML VIAL SC SCH ×2 (09:00→20:24)
--- NOTE | 2021-10-13 12:11 | Surgery Progress Note ---
Date of Service October 13, 2021 Assessment & Plan (1) Small bowel obstruction due to adhesions: Plan: POD#2 from exp lap, CHEY, partial small bowel resection for closed loop obstruction with ischemic bowel. Doing well. No nausea/vomiting. Low NG output. We will remove the NG tube. OK to have ice chips and life savers or other lozenges. Increase activity. Admission and Anticipated Discharge Date Admission Date: October 10, 2021 Subjective She is doing well today. She denies nausea or vomiting. No fevers or chills. Minimal NG output. Physical Exam Constitutional: WD/WN, vitals as above Gastrointestinal (Abdomen): Inspection/Auscultation: abdomen normal to inspection and + abdominal surgical incision (clean); abdomen not distended Percussion/Palpation: abdomen soft; no guarding Neurologic: moves all extremities and awake; no focal motor deficits Psychiatric: A+Ox3, euthymic affect Results & Data ([facility]) Vital Signs (Past 12 Hours) Vital Signs Temp Pulse Resp BP Pulse Ox 10/13/21 07:47 37 C 74 16 127/71 96
[2021-10-14] MEDS: PIPERACILLIN/TAZOBACTAM 3.375 GM in DEXTROSE 5% 100 ML IV SCH ×4 (00:04→23:27)
[2021-10-14] MEDS: SODIUM CHLORIDE 0.9% 1000ML 1,000 ML IV SCH ×2 (00:44→10:25)
[2021-10-14] MEDS: HEPARIN SOD 5,000 UNIT/0.5 ML VIAL SC SCH ×2 (08:05→20:19)
[2021-10-14] MEDS ORDERED: ACETAMINOPHEN 325 MG TAB PO PRN (08:07)
[2021-10-14] MEDS ORDERED: oxyCODONE/ACETAMINOPHEN 5mg/325mg TAB PO PRN ×2 (08:07)
--- NOTE | 2021-10-14 08:23 | Hospitalist Progress Note ---
Date of Service October 14, 2021 Assessment & Plan (1) Small bowel obstruction due to adhesions: (2) Hypothyroidism: Plan: This is a 66-year-old female who has significant past medical history of hypothyroidism, gastroparesis and arthritis who presents to ED secondary to right lower quadrant and periumbilical abdominal pain x1 day. Abdominal pain with N/V/D SBO admitted to med/surg General surgery consulted - Dr. Janny Palacios 10/12 pt is s/p ex lap (10/11) 10/13 NG tube now removed Plan for 7 days of Abx, as ischemic bowel noted on surgery, cont. IV zosyn for now plan for PO Abx on DC IVF IV apap scheduled, prn IV dilaudid Prolonged QTC on EKG EKG change High sensit. trops 2-5 she had nuclear stress test 07/2021 that was negative - at that time she was having increased fatigue and sob repeat EKG this AM -QTC shortened, nonspecific T wave abnormality replaced T wave inversion in inferior leads Echo ordered on admission - mild concentric LVH. LV wall motion is normal. LVEF 60- 65%. Grade 1 diastolic dysfunction. There is no significant valvular heart disease. Pt denies any chest pain Electrolyte abnormalities Hypokalemia, hypophosphatemia - from npo status/ poor oral intake - replace and monitor Hypothyroidism TSH 0.9 cont. IV levothyroxine for now DVT ppx: SCDs,SQ heparin PCP: Dr. Barbi El FULL CODE Dispo: Med/surg, likely to remain hospitalized next 1-2 days Admission and Anticipated Discharge Date Admission Date: October 10, 2021 Subjective Patient seen in follow-up of small bowel obstruction Underwent exploratory laparotomy Ischemic bowel noted on surgery Currently patient is sitting up in bed, in no acute distress Denies fevers, chills, chest pain, shortness of breath Abdominal discomfort is much improved NG tube removed yesterday Patient is tolerating clear liquid diet Head BM this morning Review of Systems Review of Systems: All systems reviewed & are unremarkable except as noted in Subjective Physical Exam Physical Exam: Constitutional: WD/WN, in NAD Head: Normocephalic, Atraumatic Eyes: PERRL, EOMI, conjunctivae normal, anicteric sclerae ENMT: NG tube removed Neck: normal visual inspection, supple Respiratory: normal respiratory effort, lungs clear to auscultation, no wheeze, rales, rhonchi. Normal insp/exp effort, no accessory muscle use Cardiovascular: RRR, no murmur, no edema Chest: normal inspection of chest Abdomen: +BS, soft, slight tenderness throughout (much improved), incision clean dry, no drainage, no erythema Musculoskeletal:extremities motor strength 5/5 Skin: no rashes, warm and dry normal turgor Neurologic: PERRL, EOMI, no face palsy, no dysarthria, moves all extremities Psychiatric: A+Ox3, euthymic affect Results & Data Results & Data ([facility]) Vital Signs (Past 12 Hours) Vital Signs Temp Pulse Resp BP BP Pulse Ox 10/14/21 07:23 36.8 C 60 16 122/73 99 10/13/21 22:30 36.9 C 70 16 127/68 96 Laboratory Results 10/14/21 10/14/21 Range/Units 07:25 07:25 Sodium 141 (136-145) mmol/L Potassium 3.3 L (3.5-5.1) mmol/L Chloride 109 H (98-107) mmol/L Carbon Dioxide 22 (21-32) mmol/L Anion Gap 10 (3-11) BUN 12 (6-23) mg/dl Creatinine 0.47 L (0.6-1.2) mg/dl Est Cr Clr Drug Dosing 85.9 ml/min Est GFR ( Amer) 120.1 ml/min Est GFR (Non-Af Amer) 103.7 ml/min BUN/Creatinine Ratio 25.5 H (10-20) Glucose 82 (70-99(Fasting)) mg/dl Calcium 8.4 L (8.5-10.1) mg/dl Phosphorus Pending Medications Administered Current Inpatient Medications Acetaminophen (Acetaminophen 325 Mg Tab) 650 mg PO Q4H PRN PRN Reason: Mild Pain Stop: 11/13/21 08:06 Heparin Sodium (Porcine) (Heparin Sod 5,000 Unit/0.5 Ml Vial) 5,000 units SC Q12H JOHAN Stop: 11/09/21 20:29 Last Admin: 10/14/21 08:05 Dose: 5,000 units Documented by: Hydromorphone HCl (Hydromorphone Inj 0.5 Mg/0.5 Ml Syr) 0.5 mg IV Q3H PRN PRN Reason: Pain Stop: 10/24/21 21:03 Last Admin: 10/12/21 10:05 Dose: 0.5 mg Documented by: Sodium Chloride (Nss 1000ml) 1,000 mls @ 80 mls/hr IV .[id number] [facility] Stop: 11/09/21 16:59 Last Admin: 10/14/21 00:44 Dose: 80 mls/hr Documented by: Promethazine HCl 6.25 mg/ (Sodium Chloride) 50.25 mls @ 201 mls/hr IV Q6H PRN PRN Reason: Nausea And Vomiting Stop: 11/09/21 19:54 Last Infusion: 10/11/21 05:01 Dose: Infused Documented by: Piperacillin Sod/Tazobactam (Sod 3.375 gm/ Dextrose) 115 mls @ 28.75 mls/hr IV Q8H [facility]; Protocol Stop: 10/21/21 18:29 Last Admin: 10/14/21 08:04 Dose: 28.8 mls/hr Documented by: Levothyroxine Sodium (Levothyroxine Sodium 125 Mcg Tablet) 125 mcg PO DAILYBB [facility] Stop: 11/14/21 06:29 Menthol (Cough Drop (Sugar Free) Erlinda 24 Erlinda/1 Box) 1 erlinda BUCCAL PRN PRN PRN Reason: Cough Stop: 11/11/21 11:20 Last Admin: 10/12/21 12:34 Dose: 1 erlinda Documented by: Miscellaneous Information (Piperacill/Tazobac Consult Active) 1 ea N/A UD PRN PRN Reason: Consult Stop: 11/10/21 17:53 Non-Formulary Medication (Multivitamin) 1 tab PO [facility] Stop: 11/13/21 20:59 Oxycodone/Acetaminophen (Oxycodone/Acetaminophen 5mg/325mg Tab) 1 tab PO Q4H PRN PRN Reason: Moderate Pain Stop: 10/28/21 08:06 Oxycodone/Acetaminophen (Oxycodone/Acetaminophen 5mg/325mg Tab) 2 tab PO Q4H PRN PRN Reason: Severe Pain Stop: 10/28/21 08:06
--- NOTE | 2021-10-14 08:58 | Surgery Progress Note ---
Date of Service October 14, 2021 Assessment & Plan (1) Small bowel obstruction due to adhesions: Plan: POD#3 from exp lap, CHEY, partial small bowel resection for closed loop obstruction with ischemic bowel. -afebrile, vss - minimal postop pain - return of bowel function this am - no n/v Plan: PO Tylenol and Percocet as needed for pain clear liquids continue ambulation incentive spirometry advised continue scds and Heparin for DVT prophylaxis Continue IV antibiotics Decrease IV fluids to 50 cc/hr can discontinue if takes po intake well Rounded with Dr. Rivers at 11:15 am: tolerated clear liquids, would like more to eat soreness still controlled ambulating hallway Will advanced diet as tolerated Discontinue IV fluids Potassium replaced Phosphorous still low possible discharge home tomorrow Admission and Anticipated Discharge Date Admission Date: October 10, 2021 Subjective feeling good feeling much better than yesterday soreness at incision site + liquid stool and passing gas no chest pain or shortness of breath Physical Exam Constitutional: WD/WN, vitals as above no acute distress and not ill appearing Neck: normal visual inspection and trachea midline Respiratory: normal respiratory effort, lungs clear to auscultation Cardiovascular: RRR, no murmur, no edema Gastrointestinal (Abdomen): Inspection/Auscultation: abdomen normal to inspection, normal bowel sounds and + abdominal surgical incision (clean,dry, intact heriberto); abdomen not distended Percussion/Palpation: + abdomen tender (minimal at midline incision) and abdomen soft; no guarding and abdomen not rigid Skin: no rashes, warm and dry Psychiatric: A+Ox3, euthymic affect Results & Data ([facility]) Vital Signs (Past 12 Hours) Vital Signs Temp Pulse Resp BP BP Pulse Ox 10/14/21 07:23 36.8 C 60 16 122/73 99 10/13/21 22:30 36.9 C 70 16 127/68 96 Laboratory Results 10/14/21 10/14/21 Range/Units 07:25 07:25 Sodium Pending Potassium Pending Chloride Pending Carbon Dioxide Pending Anion Gap Pending BUN Pending Creatinine Pending Est Cr Clr Drug Dosing Pending Est GFR ( Amer) Pending Est GFR (Non-Af Amer) Pending BUN/Creatinine Ratio Pending Glucose Pending Calcium Pending Phosphorus Pending
[2021-10-14] MEDS ORDERED: LEVOTHYROXINE SODIUM 62.5 MCG in SYRINGE 0 ML IV SCH (09:00)
[2021-10-14] MEDS: LEVOTHYROXINE SODIUM 125 MCG TABLET PO SCH (09:04)
[2021-10-14 09:35] LABS: BUN Creatinine Ratio 25.5 (10-20); Calcium 8.4 mg/dl (8.5-10.1); Creatinine Clr Calc Pharmacy 85.9 ml/min; Est GFR (African American) 120.1 ml/min; Est GFR (Non-African American) 103.7 ml/min; Potassium 3.3 mmol/L (3.5-5.1)
[2021-10-14] MEDS ORDERED: POTASSIUM CHLORIDE CRTAB 20 MEQ TABCR PO STA (09:44)
[2021-10-14] MEDS: POT PHOSPHATE MONOBASIC W/ SOD TAB PO SCH ×3 (13:48→20:19)
[2021-10-14] MEDS ORDERED: MULTIVITAMIN TAB PO SCH (21:00)
[2021-10-15] MEDS: LEVOTHYROXINE SODIUM 125 MCG TABLET PO SCH (06:39)
[2021-10-15] MEDS: PIPERACILLIN/TAZOBACTAM 3.375 GM in DEXTROSE 5% 100 ML IV SCH (07:38)
[2021-10-15] MEDS: POT PHOSPHATE MONOBASIC W/ SOD TAB PO SCH ×2 (07:40→12:43)
[2021-10-15] MEDS: HEPARIN SOD 5,000 UNIT/0.5 ML VIAL SC SCH (07:40)
[2021-10-15 09:16] LABS: Hematocrit (blood only) 32.8 % (37-47); Hemoglobin 10.8 g/dL (12.0-16.0); Mean Corpuscular Hemoglobin 30.9 pg (25-34); Mean Corpuscular Hgb Conc 32.9 g/dL (32-36); Mean Corpuscular Volume 93.7 fL (80-100); Mean Platelet Volume 10.2 fL (7.4-10.4); Platelet Count 316 K/uL (130-400); RDW Coefficient of Variation 14.6 % (11.5-14.5); RDW Standard Deviation 49.9 fL (36.4-46.3); White Blood Count 5.29 K/uL (4.8-10.8)
[2021-10-15 09:29] LABS: BUN Creatinine Ratio 16.3 (10-20); Calcium 8.9 mg/dl (8.5-10.1); Creatinine Clr Calc Pharmacy 82.4 ml/min; Est GFR (African American) 118.5 ml/min; Est GFR (Non-African American) 102.2 ml/min; Magnesium 1.7 mg/dl (1.7-2.4); Phosphorus 2.7 mg/dl (2.5-4.9); Potassium 3.3 mmol/L (3.5-5.1)
--- NOTE | 2021-10-15 11:24 | Surgery Progress Note ---
Date of Service October 15, 2021 Assessment & Plan (1) Small bowel obstruction due to adhesions: Plan: POD#4 from exp lap, CHEY, partial small bowel resection for closed loop obstruction with ischemic bowel. -afebrile, vss - no postop pain - return of bowel function - no n/v Plan: doing well from surgical standpoint for discharge today discharge instructions reviewed and provided abdominal binder ordered per pt request will give 1 day of oral abx to complete 5 day course follow-up surgical office next week for staple removal and follow-up Dr. Rivers has seen and examined pt, agrees with above. Admission and Anticipated Discharge Date Admission Date: October 10, 2021 Subjective feeling great no pain tolerated low fiber diet no n,v ambulating , using incentive + diarrhea ready to go home Physical Exam Constitutional: WD/WN, vitals as above no acute distress and not ill appearing Respiratory: normal respiratory effort; no respiratory distress Gastrointestinal (Abdomen): Inspection/Auscultation: abdomen normal to inspection and + abdominal surgical incision (clean,dry,intact with heriberto); abdomen not distended Percussion/Palpation: abdomen soft; abdomen nontender, no guarding and abdomen not rigid Skin: no rashes, warm and dry Psychiatric: A+Ox3, euthymic affect Results & Data ([facility]) Vital Signs (Past 12 Hours) Vital Signs Temp Pulse Resp BP Pulse Ox 10/15/21 07:51 36.9 C 50 L 17 155/78 H 99 Laboratory Results 10/15/21 10/15/21 Range/Units 08:25 08:25 WBC 5.29 (4.8-10.8) K/uL RBC 3.50 L (4.2-5.4) M/uL Hgb 10.8 L (12.0-16.0) g/dL Hct 32.8 L (37-47) % MCV 93.7 (80-100) fL MCH 30.9 (25-34) pg MCHC 32.9 (32-36) g/dL RDW Std Deviation 49.9 H (36.4-46.3) fL RDW Coeff of Ben 14.6 H (11.5-14.5) % Plt Count 316 (130-400) K/uL MPV 10.2 (7.4-10.4) fL Sodium 141 (136-145) mmol/L Potassium 3.3 L (3.5-5.1) mmol/L Chloride 105 (98-107) mmol/L Carbon Dioxide 28 (21-32) mmol/L Anion Gap 8 (3-11) BUN 8 (6-23) mg/dl Creatinine 0.49 L (0.6-1.2) mg/dl Est Cr Clr Drug Dosing 82.4 ml/min Est GFR ( Amer) 118.5 ml/min Est GFR (Non-Af Amer) 102.2 ml/min BUN/Creatinine Ratio 16.3 (10-20) Glucose 100 H (70-99(Fasting)) mg/dl Calcium 8.9 (8.5-10.1) mg/dl Phosphorus 2.7 D (2.5-4.9) mg/dl Magnesium 1.7 (1.7-2.4) mg/dl
[2021-10-15] MEDS ORDERED: POTASSIUM CHLORIDE CRTAB 20 MEQ TABCR PO STA (14:47)
--- NOTE | 2021-10-15 14:57 | Discharge Summary ---
Date of Service October 15, 2021 Admission HPI Per Admitting Provider This is a 66-year-old female who has significant past medical history of hypothyroidism, gastroparesis and arthritis who presents to ED secondary to right lower quadrant and periumbilical abdominal pain x1 day. Symptoms started around 930 this morning with associated nausea, vomiting and diarrhea. She woke up this morning in her normal state of health. She did not eat breakfast. She got her work out in. Approx 20-30 min after workout she developed crampy lower abdominal pain that felt like, "gas." She then proceeded to vomiting 3-4 x of green emesis, non bloody. She also had about 2-3 episodes of loose watery stool. No known sick contacts. Last meal was dinner last night. She has never had this before. Pain is constant. Pain is located in abdomen. Initially was RLQ now more upper abd. Described as sharp. Her last Bm was at 12pm today in ED and diarrhea. She denies f/s, chest pain, sob, cough, uri sx, lightheaded, dizziness, dysuria, increased urg/freq with urination, hematuria, melena or hematochezia. S he has hx of vaginal hysterectomy. No other prior abdominal surgeries. She is very active with exercise and walking. She follows GI for gastroparesis but does not take anything for this. She denies tobacco use and drinks wine occasionally. She had one glass of wine last night. Only drinks on weekends. In ED pt was hemodynamically stable. CT a/p revealed Findings are compatible with small bowel obstruction in the right lower quadrant. There is some wall thickening. Although some stool remains in the cecum, 2 transition points are seen and a closed loop obstruction cannot be entirely excluded. She received IV pain medications and antiemetics in ED. SHe continues to have significant abdominal pain. Admission Exam Per Admitting Provider Constitutional: WD/WN, vitals as above, NAD, sitting up in bed, pleasant, conversing easily Head: Normocephalic, Atraumatic Eyes: PERRL, conjunctivae normal, anicteric sclerae ENMT: external ear and nose normal, oropharynx normal Neck: trachea midline, no thyromegaly normal visual inspection Respiratory: normal respiratory effort, lungs clear to auscultation, no wheeze, rales, rhonchi. Normal insp/exp effort, no accessory muscle use Cardiovascular: RRR, no murmur, no edema Vessels: no JVD or carotid bruit Chest: normal inspection of chest Abdomen: +BS, soft but tender throughout Musculoskeletal: no cyanosis or clubbing, extremities motor strength 5/5 Skin: no rashes, warm and dry normal turgor Neurologic: PERRL, EOMI, accommodation nl, no face palsy, no dysarthria CN's II-XI intact bilaterally and moves all extremities Psychiatric: A+Ox3, euthymic affect : deferred Principal Diagnosis Small bowel obstruction due to adhesions: Hypothyroidism: Electrolyte abnormalities Discharge Exam Constitutional: WD/WN, in NAD Head: Normocephalic, Atraumatic Eyes: PERRL, EOMI, conjunctivae normal, anicteric sclerae ENMT: NG tube removed Neck: normal visual inspection, supple Respiratory: normal respiratory effort, lungs clear to auscultation, no wheeze, rales, rhonchi. Normal insp/exp effort, no accessory muscle use Cardiovascular: RRR, no murmur, no edema Chest: normal inspection of chest Abdomen: +BS, soft, incision clean dry, no drainage, no erythema Musculoskeletal:extremities motor strength 5/5 Skin: no rashes, warm and dry normal turgor Neurologic: PERRL, EOMI, no face palsy, no dysarthria, moves all extremities Psychiatric: A+Ox3, euthymic affect Discharge Data Allergies Allergy/AdvReac Type Severity Reaction Status Date / Time No Known Allergies Allergy Verified 10/10/21 14:58 Consultations 10/10/21 15:58 ED Decision to Admit Stat 10/10/21 16:08 Consult General Surgery Routine 10/10/21 16:15 Consult General Surgery Stat Procedures Performed Operation Date: 10/11/21 13:00 Actual Procedures p Exploratory Laparotomy, Bowel Resection. - Janny Palacios MD Ordered Studies 10/10/21 12:56 CT abd pelvis IV con only Stat KUB HISTORY: Small bowel obstruction. Follow-up. COMPARISON: KUB 10/10/2021. FINDINGS: Mildly dilated gas-filled loops of small bowel are again seen within the abdomen consistent with a small bowel obstruction. Nasogastric tube terminates in the distal stomach. No renal calculi. No ureteral calculi. No pneumoperitoneum or pneumatosis. IMPRESSION: 1. No change in the small bowel obstructive pattern. 2. Nasogastric tube terminates in the distal stomach. ACT 112: Negative or not required by law. Electronically signed by: Preston Joshi M.D. 10/11/2021 11:19 AM Dictated:10/11/21 1119 Transcribed: 10/11/21 111 KUB CLINICAL HISTORY: ng tube placement COMPARISON STUDY: CT of the abdomen and pelvis performed earlier today. FINDINGS: The tip of the nasogastric tube is within the distal body of the stomach. IMPRESSION: Tip of nasogastric tube within the distal body of the stomach. ACT 112: Negative or not required by law. Electronically signed by: Antwan Boss M.D. 10/10/2021 5:13 PM Dictated:10/10/211711 Transcribed: 10/10/211711 CT abd pelvis IV con only CLINICAL HISTORY: n/v/d rlq abd pain TECHNIQUE: Helical axial images of the abdomen and pelvis were obtained and displayed. Automated dose lowering techniques and/or adjustment according to patient size were utilized for this exam. This exam was performed with intravenous contrast. CT DOSE: 260.71 mGy.cm COMPARISON: Comparison is made to CT abdomen pelvis 07/10/2013 FINDINGS: Lower chest: A focus of groundglass and consolidative opacity is seen in the left lower lobe. This may represent infectious/inflammatory process. Liver: Unremarkable. No focal lesions are seen. Gallbladder and biliary tree: No calcified gallstones. Normal caliber wall. No intra- or extrahepatic biliary ductal dilation. Pancreas: Unremarkable, no focal lesions. Spleen: Unremarkable. Adrenals: Unremarkable. Kidneys and ureters: Unremarkable. Bladder: Unremarkable. Reproductive organs: Unremarkable. Bowel: The appendix is normal. There are multiple dilated loops of bowel just prior to the terminal ileum measuring up to 27 mm. Bowel wall thickening and surrounding fat stranding and free fluid is noted. Transition points are visualized in the right lower quadrant. Lymph nodes Retroperitoneal: Unremarkable. Mesenteric: Unremarkable. Pelvic: Unremarkable. Peritoneum: Normal. Vessels: Unremarkable. Abdominal wall: Unremarkable. Bones: Degenerative changes in the visualized spine. IMPRESSION: Findings are compatible with small bowel obstruction in the right lower quadrant. There is some wall thickening. Although some stool remains in the cecum, 2 transition points are seen and a closed loop obstruction cannot be entirely excluded. ACT 112: Negative or not required by law. Electronically signed by: Alexx Fowler M.D. 10/10/2021 3:39 PM Dictated:10/10/21 152 Transcribed: 10/10/21 1521 Hospital Course (1) Small bowel obstruction due to adhesions: (2) Hypothyroidism: This is a 66-year-old female who has significant past medical history of hypothyroidism, gastroparesis and arthritis who presents to ED secondary to right lower quadrant and periumbilical abdominal pain x1 day. Abdominal pain with N/V/D SBO admitted to med/surg General surgery consulted - Dr. Janny Palacios 10/12 pt is s/p ex lap (10/11) 10/13 NG tube now removed Plan for 7 days of Abx, as ischemic bowel noted on surgery, cont. IV zosyn for now plan for PO Abx on DC IVF IV apap scheduled, prn IV dilaudid Prolonged QTC on EKG EKG change High sensit. trops 2-5 she had nuclear stress test 07/2021 that was negative - at that time she was having increased fatigue and sob repeat EKG this AM -QTC shortened, nonspecific T wave abnormality replaced T wave inversion in inferior leads Echo ordered on admission - mild concentric LVH. LV wall motion is normal. LVEF 60- 65%. Grade 1 diastolic dysfunction. There is no significant valvular heart disease. Pt denies any chest pain Electrolyte abnormalities Hypokalemia, hypophosphatemia - from npo status/ poor oral intake - replace and monitor Hypothyroidism TSH 0.9 cont. IV levothyroxine for now DVT ppx: SCDs,SQ heparin PCP: Dr. Barbi El FULL CODE Dispo: Med/surg, likely to remain hospitalized next 1-2 days Total Time Total Time Spent Total Time Spent (In Minutes): 35 minutes Discharge Plan Discharge Items Patient Disposition: Home - Self-Care Reason For Visit: SBO Discharge Diagnosis: Small bowel obstruction due to adhesions: Hypothyroidism: Electrolyte abnormalities Activity: As commented below Non-emergency contact: Primary Care Provider and Surgeon Call non-emergency contact if: you have any medication questions Follow-up/Referrals: Barbi El MD [Primary Care Provider] - Diet: Low Fiber Addtl Attending Provider Instructions: Follow up with your primary care provider in 1 week Please advance diet slowly as tolerated Seek medical attention if your symptoms worsening Check BMP and phosphates level in 1 week to monitor your electrolytes Addtl Document Analyst Provider Instructions: Post-Surgical ~Discharge Instructions Activity Recommendations: - lifting limitation: (10-20 pounds for 6 weeks), - exercise/sex/sports limit: (nonstrenuous for at least 4 weeks), - driving or machine use limit: (none for 1 week or until pain free and no longer taking narcotic pain medication, - Shower/bathe limit: (may shower , no submerging incision underwater for 2 weeks Diet: - Low fiber diet for 2 weeks and then advance to regular diet SPECIAL CARE INSTRUCTIONS: - May shower. Let water run over area and pat dry. - Surgical heriberto will be removed in office. - Wear abdominal binder for support daily or as needed. - Call the surgeon's office with any questions or concerns - - (ex. temperature higher than 101 degrees F, excessive bleeding or pain). MEDICATIONS: - Resume previous medications unless instructed otherwise by your surgeon. - May alternate extra strength Tylenol and Ibuprofen as needed for mild to moderate pain -650 mg Tylenol every 6 hours as needed - Ibuprofen 600 mg every 6 hours as needed (take with food and limit continuous use for no more than 3 days) - Take Augmentin (antibiotic) as prescribed to complete 5 day course of antibiotics . FOLLOW UP VISIT: - If not already scheduled, please call the office to schedule a one week follow-up appointment next Wednesday10/21/2021. Office number Pending Studies at Discharge: Yes (pathology, will be reviewed at follow-up visit) Stand-Alone Forms: My [facility], Smoking Cessation Medications and DC Order Prescriptions: New amoxicillin-pot clavulanate 875-125 mg tablet 1 tab PO BID Qty: 2 RF: 0 Phospha 250 Neutral 250 mg Tablet 1 tab PO BID Qty: 30 RF: 0 Continued levothyroxine [Synthroid] 125 mcg tablet 125 mcg PO DAILYBB RF: 0 multivitamin Tablet 1 tab PO HS RF: 0 ascorbic acid (vitamin C) [Vitamin C] 1,000 mg Tablet 0 mg PO HS RF: 0 cyanocobalamin (vitamin B-12) [Vitamin B-12] 1,000 mcg Tablet 0 mcg PO HS RF: 0 calcium carbonate 500 mg calcium (1,250 mg) Tablet 0 mg PO HS RF: 0 zinc 50 mg Tablet 0 mg PO HS RF: 0 cholecalciferol (vitamin D3) [Vitamin D3] 25 mcg (1,000 unit) Tablet 0 mcg PO HS RF: 0 Probiotic 100 billion cell Capsule 0 cap PO HS RF: 0 Discharge Orders: Discharge Order (Routine); Ordered 10/15/21 Ordered By: José Miguel Lee/Other Patient Handouts: Small Bowel Obstruction Admission Data Admit Date/Time: 10/10/21 16:08 Attending Provider: José Miguel Sharif Admit Provider: Piyush Jennings Primary Care Provider: Barbi El Other Providers: Janny Palacios ; Piyush Jennings ; Bruno Lagunas Other Interventions: Discharge Summary Assessment (RN) Last Done: 10/15/21 15:06
== END 2021-10-15 16:08 | disposition home or self-care (01) | DRG 329 ==
LOC: ED 12:38 → 3E 16:08 → SUATTDRO 16:08 → 3E 19:22